=== PATIENT | male | born 1935 | race Hispanic/Latino ===

== ENCOUNTER 2022-06-06 10:37 | Inpatient (IN) ==
[2022-06-06] MEDS ORDERED: IOPAMIDOL 100 ML BOTTLE IV ONE (10:38)
--- NOTE | 2022-06-06 10:42 | Emergency Department Note ---
HPI General Chief complaint: Weakness Stated complaint: weakness, low blood pressure. Time Seen by Provider: 06/06/22 10:41 Mode of arrival: wheelchair History of Present Illness HPI Narrative: Narrative: 86-year-old male with a past medical history of hypertension and as below presents with low blood pressure of 77 systolic as brought by EMT. Patient had diarrhea for 4 days. No headache, dizziness, chest pain, abdominal pain, nausea, no vomiting, fever, chills Related Data Home Medications Medication Instructions Recorded Confirmed aspirin 81 mg chewable tablet 81 mg PO QDAY 03/10/15 05/26/22 multivitamin 1 tab PO QDAY 03/10/15 05/26/22 acetaminophen 500 mg capsule 500 mg PO Q6H PRN 03/23/21 05/26/22 Previous Rx's Medication Instructions Recorded sodium chloride 1 gram tablet 1,000 mg PO QDAY #30 tabs 10/13/20 ferrous sulfate 325 mg (65 mg 325 mg PO BID #90 tabs 12/23/20 iron) tablet,delayed release furosemide 20 mg tablet 20 mg PO QDAY #30 tabs 02/04/21 diaper,brief,adult,disposable #140 ea 03/25/21 apixaban 2.5 mg tablet 2.5 mg PO BID #60 tabs 04/26/21 amlodipine 10 mg tablet 10 mg PO QDAY #90 tabs 09/23/21 tamsulosin 0.4 mg capsule 0.4 mg PO QHS #30 caps 10/20/21 theophylline 400 mg 200 mg PO BID #90 tabs 10/20/21 tablet,extended release 24 hr iron sucrose 200 mg iron/10 mL 200 mg (10 mL) IV QWEEK Failed 11/02/21 intravenous solution (Venofer) oral iron supplements #20 mL montelukast 10 mg tablet 10 mg PO QPM #90 tabs 02/01/22 (Singulair) Roho cushion #1 ea 03/29/22 levothyroxine 125 mcg tablet 125 mcg PO QDAY #90 tabs 04/21/22 Allergies Allergy/AdvReac Type Severity Reaction Status Date / Time peanut Allergy Severe Rash Verified 05/26/22 10:53 yeast Allergy Severe Rash Uncoded 05/26/22 10:53 Review of Systems ROS ROS Narrative: Narrative: Constitutional: Reports as per HPI PFSH Narrative Patient History Narrative: Narrative: Medical/Surgical/Family History All Active Problems (Updated 06/06/22 @ 17:53 by Modesto Paulino MD) Hypotension (Acute) Dehydration (Acute) Cellulitis of both lower extremities (Acute) Colitis (Acute) UTI (urinary tract infection) (Acute) Benign localized prostatic hyperplasia without lower urinary tract symptoms (LUTS) (Acute) Bladder disorder, other (Acute) COPD (chronic obstructive pulmonary disease) (Acute) Developmental delay (Acute) Elevated PSA (Acute) Hematuria (Acute 11/13/14) Horseshoe kidney (Acute) Hydronephrosis (Acute) RAD (reactive airway disease) (Acute) Urine retention (Acute 11/13/14) History of intraocular lens implant (Acute) Status post surgical removal of malignant neoplasm of skin (Acute) History of prostate surgery (Acute 02/24/15) Hyperkalemia (Acute) Metabolic acidosis (Chronic) Hypertensive renal disease (Chronic) Anemia (Chronic) History of colonoscopy (Chronic 06/22/15) Medicare annual wellness visit, subsequent (Acute) Hyponatremia (Chronic) Annual physical exam (Acute) Xerosis cutis (Acute) Dermatitis (Acute) Cervical spine fracture (Acute) Fall (Acute) Sacral ulcer (Acute) Weakness (Acute) Edema of right lower extremity (Acute) Hematuria (Acute) Eczema (Acute) Chronic kidney disease (CKD) stage G3a/A2, moderately decreased glomerular filtration rate (GFR) between 45-59 mL/min/1.73 square meter and albuminuria creatinine ratio between 30-299 mg/g (Chronic) Horseshoe kidney (Chronic) Primary hypertension (Chronic) Anemia due to stage 3a chronic kidney disease (Chronic) Acute urinary retention (Acute) Acute UTI (Acute) Cellulitis of left leg (Acute) Thrombosis of left saphenous vein (Acute) PAD (peripheral artery disease) (Acute) Dermatitis (Acute) Localized edema due to fluid overload (Chronic) Iron deficiency anemia (Acute) Hypothyroidism (Acute) Atypical squamoproliferative skin lesion (Acute) Recurrent urinary tract infection (Acute) Medical History Anemia hB down to upto 11.8 from 11.5-11.0 Tsat is low advised to start OTC ferrous sulphate bid will follow Annual physical exam Atypical squamoproliferative skin lesion Benign localized prostatic hyperplasia without lower urinary tract symptoms (LUTS) Bladder disorder, other Bladder floor mass consistent with neoplasm COPD (chronic obstructive pulmonary disease) Dermatitis Dermatitis Developmental delay Eczema Edema of right lower extremity Elevated PSA Hematuria (11/13/14) Hematuria 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 Would hold off treating this for now. Hydronephrosis He does have bilateral hydronephrosis and this is probably secondary to his retention. We will need to do an ultrasound in the future to see if this has resolved. Hyperkalemia ACEI and CKD are risk factor for hyperkalemia given worsening renal function and hyperkalemia, lisinopril has been discontinued advised to avoid foods with high K content will monitor Hypertensive renal disease Hyponatremia Hypothyroidism Iron deficiency anemia Medicare annual wellness visit, subsequent Metabolic acidosis bicarb at 21, goal is 22 or more will monitor and start sodium bicarb supplement if needed next visit RAD (reactive airway disease) Sacral ulcer Urine retention (11/13/14) Weakness Xerosis cutis Surgical History History of colonoscopy (06/22/15) 03/08/10 Dr. Kahn History of intraocular lens implant Bilateral History of prostate surgery (02/24/15) Vaporization of the prostate Status post surgical removal of malignant neoplasm of skin Basal cell carcinoma Left Groin Family History Mother , at age 72 Alcohol abuse Father , at age 87 Diabetes mellitus Unknown Essential hypertension Malignant neoplasm Social History Smoking Status: Former smoker Alcohol Intake Frequency: does not drink Substance Use: does not use Exam Narrative Narrative: Narrative: General General appearance: Present alert and in no apparent distress Eye Eye: Present normal appearance ENT ENT: Present mucous membranes dry Respiratory Respiratory: Present normal lung sounds bilaterally Cardiovascular Cardiovascular: Present regular rate, normal rhythm and normal heart sounds Adbominal Abdominal: Present soft and normal bowel sounds; Absent tenderness, guarding or organomegaly Extremities Extremities: Present clubbing and other (bilateral LE redness and swelling. ) Neurological Neurological: Present alert and oriented X3 Course Course Course Narrative: CBC, CMP, UA, lactic acid, CRP, C. difficile, blood cultures, troponin, COVID, culture for wound, chest x-ray were ordered. Normal saline 500 mL was given. Patient has anemia of hemoglobin 7.8. 1 unit of blood transfusion was ordered. CT abdomen/pelvis with contrast was ordered. COVID-[address] abdominal pelvis consistent with [facility] NAME: Harsh Zamarripa [address] [place] [address] : 1935 [address] Service Date: 06/06/22 Report # [id number] [place] [address] Miki Ward M.D. MR #: [id number] Cat Scan Report Signed Ordering Physician:Modesto Paulino M.D. Date of Service:06/06/22 Procedure(s):CT abdomen pelvis w con CLINICAL INFORMATION: Weakness, low blood pressure and diarrhea COMPARISON: Abdomen and pelvic CTs 12/16/2020 and 02/19/2021 TECHNIQUE: Following enteric contrast, 80 cc of Isovue-370 were injected intravenously, and 60 seconds later, 0.625 mm helical slices were obtained from the mid heart through the subtrochanteric regions. Following reconstruction, 2.5 mm sagittal, coronal and axial reformatted images were processed and reviewed at bone, lung and soft tissue windows. Five minutes later, 0.625 mm helical slices were obtained from the mid heart through the kidneys and viewed at soft tissue windows.The exam was performed using radiation dose optimization techniques including, but not limited to, automated exposure control, adjustment of the mA and/or kV according to patient size and use of iterative reconstruction technique. FINDINGS: Left pleural effusion as decreased slightly in size now small/moderate size. There is subsegmental atelectasis in the adjacent posterior lower lobe. Scattered fibrosis in the remaining lung bases. The visualized heart is mildly enlarged with scattered calcific plaque. Abdominal images show joint 8 mm cyst in the subdiaphragmatic right hepatic lobe. No significant hepatic abnormality. 12 mm solitary cholesterol stone in the gallbladder neck seen as as before. Gallbladder and bile ducts are, otherwise, normal CBD is 6 mm. The pancreas is normal. There is an 8 mm low-attenuation lesion in the spleen which is stable. A 14 mm benign adenoma left adrenal gland is stable. Right adrenal land is normal. Horseshoe kidney configuration seen as before. There are 3-4 nonobstructing stones in the upper collecting system of the left kidney ranging up to 8 mm in the inferior calyx. No obstructing stone or hydronephrosis. A 5.2 cm simple cyst in the medial left kidney is unchanged. 2.7 cm inhomogeneously enhancing well-circumscribed lesion inferior pole left kidney show slight increase since the earliest CT 1.5 years ago. At that time, it was 2.6 cm. Mildly enlarged lymph nodes in the para-aortic region are almost totally benign reactive lymph nodes. Pelvic images show mild prostate enlargement. Troy catheter is properly positioned urinary bladder. There is marked diffuse urinary bladder wall thickening. Moderate diffuse wall thickening of the distal sigmoid and rectum with inflammation and the perisigmoid and perirectal fat is a new finding suggests proctitis/colitis. The remainder of the large bowel small bowel and stomach are grossly normal. There is a 5.3 cm periumbilical hernia containing only mesenteric fat with moderate edema in the hernia as previously seen. Bone windows show no osseous abnormality. IMPRESSION: 1. Suspect distal sigmoid colitis and proctitis. Consider colonoscopy correlation 2. 6 cm paraumbilical hernia containing only mesenteric fat. Edema in the mesenteric fat. 3. 2.7 cm inhomogeneously enhancing mass inferior pole of the left kidney is slight increase from exam 1.5 years ago it is likely a very slow-growing stage I renal cell carcinoma. No evidence of metastatic disease. 4. 3-4 nonobstructing stones upper collecting system left kidney ranging up to 6 mm. 5. Solitary 12 mm stone in the gallbladder 6. Moderate left pleural effusion slightly decreased. Interpreted and Authenticated by: Miki Ward 06/06/22 [id number] Slotter Operator: Will give Flagyl 500 mg IV. Patient will be referred to urology consult for left kidney mass. Patient also has UTI Patient's will be admitted to Med Surg as discussed with Hospitalist Dr. SANDHU Vital Signs Vital signs: Vital Signs Temperature 98.2 F 06/06/22 10:39 Pulse Rate 77 06/06/22 10:39 Respiratory Rate 20 06/06/22 10:39 Pulse Oximetry (%) 96 06/06/22 10:39 Oxygen Delivery Method 06/06/22 10:39 Temperature 98.2 F 06/06/22 10:39 Pulse Rate 72 06/06/22 17:46 Respiratory Rate 20 06/06/22 10:39 Blood Pressure 123/54 06/06/22 17:46 Pulse Oximetry (%) 98 06/06/22 17:46 Oxygen Delivery Method 06/06/22 10:39 MDM MDM Narrative Medical decision making narrative: Narrative: Lab Data Result diagrams: 06/06/22 11:18 Labs: Lab Results 06/06/22 06/06/22 06/06/22 Range/Units 11:07 11:09 11:18 WBC 5.4 (4.5-11.0) K/mcL RBC 2.62 L (4.63-6.08) M/mcL Hgb 7.8 L (13.7-17.5) g/dL Hct 23.5 L (40.1-51.0) % POC Hct 24.0 L (41-55) MCV 89.7 (80.0-100.0) fL MCH 29.8 (26.0-34.0) pg MCHC 33.2 (31.0-36.0) g/dL RDW 14.7 H (11.5-14.5) % Plt Count 254 (140-440) K/mcL MPV 8.1 L (8.8-12.5) fL Immature Gran % (Auto) 0.4 (0.0-0.5) % Neut % (Auto) 54.8 (38.0-78.0) % Lymph % (Auto) 15.0 L (15.5-49.0) % [place] % (Auto) 8.5 (1.0-12.0) % Eos % (Auto) 20.6 H (0.0-7.0) % Baso % (Auto) 0.7 (0.0-2.0) % Lymph # (Auto) 0.81 L (1.50-4.80) K/mcL [place] # (Auto) 0.46 (0.10-0.90) K/mcL Eos # (Auto) 1.11 H (0.00-0.70) K/mcL Baso # (Auto) 0.04 (0.00-0.30) K/mcL Immature Gran # 0.02 (0.00-0.05) K/mcl Absolute Neutrophils 2.95 (1.80-8.00) K/mcL VBG Lactic Acid (0.5-2.0) mmol/L POC Sodium 131 L (133-145) POC Potassium 3.6 (3.3-5.1) POC Chloride 98 (96-108) POC Total CO2 20.0 L (22-30) POC BUN 24 H (6-20) POC Creatinine 1.4 H (0.6-1.2) POC Glucose 95 (70-105) POC WB Ioniz Calcium 1.21 (1.16-1.32) Total Bilirubin (0.1-1.0) mg/dL Direct Bilirubin (0-0.3) mg/dL AST (<40) U/L ALT (<40) U/L Alkaline Phosphatase (39-117) U/L C-Reactive Protein (0.03-0.80) mg/dL Total Protein (5.9-8.4) gm/dL Albumin (3.2-5.2) gm/dL Globulin (2.2-3.7) gm/dL Amylase (28-100) U/L Urine Color Urine Appearance (Clear) Urine pH (5.0-9.0) Ur Specific [place] (1.000-1.035) Urine Protein (Negative) mg/dL Urine Glucose (UA) (Negative) mg/dL Urine Ketones (Negative) mg/dL Urine Occult Blood (Negative) mg/dL Urine Nitrate (Negative) Urine Bilirubin (Negative) mg/dL Urine Urobilinogen mg/dL Ur Leukocyte Esterase (Negative) /uL Urine RBC (0-1) /hpf Urine WBC (0-4) /hpf Ur Squamous Epith Cells (0-4) /hpf Ur Transition Epith Cell (0-2) /hpf Triple Phos Crystals (None) /hpf Amorphous Crystals (None) /hpf Urine Bacteria (0) /hpf Urine Mucus (None) /hpf Ur Culture Indicated? POC Troponin I 0.01 L (0.02-0.08) 06/06/22 06/06/22 Range/Units 11:18 12:49 WBC (4.5-11.0) K/mcL RBC (4.63-6.08) M/mcL Hgb (13.7-17.5) g/dL Hct (40.1-51.0) % POC Hct (41-55) MCV (80.0-100.0) fL MCH (26.0-34.0) pg MCHC (31.0-36.0) g/dL RDW (11.5-14.5) % Plt Count (140-440) K/mcL MPV (8.8-12.5) fL Immature Gran % (Auto) (0.0-0.5) % Neut % (Auto) (38.0-78.0) % Lymph % (Auto) (15.5-49.0) % [place] % (Auto) (1.0-12.0) % Eos % (Auto) (0.0-7.0) % Baso % (Auto) (0.0-2.0) % Lymph # (Auto) (1.50-4.80) K/mcL [place] # (Auto) (0.10-0.90) K/mcL Eos # (Auto) (0.00-0.70) K/mcL Baso # (Auto) (0.00-0.30) K/mcL Immature Gran # (0.00-0.05) K/mcl Absolute Neutrophils (1.80-8.00) K/mcL VBG Lactic Acid 0.8 (0.5-2.0) mmol/L POC Sodium (133-145) POC Potassium (3.3-5.1) POC Chloride (96-108) POC Total CO2 (22-30) POC BUN (6-20) POC Creatinine (0.6-1.2) POC Glucose (70-105) POC WB Ioniz Calcium (1.16-1.32) Total Bilirubin 0.4 (0.1-1.0) mg/dL Direct Bilirubin < 0.2 (0-0.3) mg/dL AST 62 H (<40) U/L ALT 37 (<40) U/L Alkaline Phosphatase 65 (39-117) U/L C-Reactive Protein 12.90 H (0.03-0.80) mg/dL Total Protein 5.8 L (5.9-8.4) gm/dL Albumin 2.4 L (3.2-5.2) gm/dL Globulin 3.4 (2.2-3.7) gm/dL Amylase 100 (28-100) U/L Urine Color Yellow Urine Appearance Turbid A (Clear) Urine pH 7.0 (5.0-9.0) Ur Specific [place] 1.017 (1.000-1.035) Urine Protein >=500 A (Negative) mg/dL Urine Glucose (UA) Negative (Negative) mg/dL Urine Ketones Negative (Negative) mg/dL Urine Occult Blood Negative (Negative) mg/dL Urine Nitrate Negative (Negative) Urine Bilirubin Negative (Negative) mg/dL Urine Urobilinogen Negative mg/dL Ur Leukocyte Esterase 250 A (Negative) /uL Urine RBC > 182 H (0-1) /hpf Urine WBC > 182 H (0-4) /hpf Ur Squamous Epith Cells 0 (0-4) /hpf Ur Transition Epith Cell 1 (0-2) /hpf Triple Phos Crystals Few A (None) /hpf Amorphous Crystals Few A (None) /hpf Urine Bacteria None (0) /hpf Urine Mucus Many A (None) /hpf Ur Culture Indicated? yes POC Troponin I (0.02-0.08) ED POC Tests ED POC Tests: DEREK - SARS Antigen Negative Discharge Plan Patient/Caregiver Discharge Instructions Pt seen by B[facility]ER/PA only: No Clinical Impression: Hypotension, Dehydration, Cellulitis of both lower extremities, Colitis, UTI (urinary tract infection) Patient Disposition: Xfer Acute [facility] Condition: Fair Follow up with: Solitario Bo MD [Primary Care Provider] - Prescriptions: No Action sodium chloride 1 gram tablet 1,000 mg PO QDAY Qty: 30 1RF ferrous sulfate 325 mg (65 mg iron) tablet,delayed release (DR/EC) 325 mg PO BID Qty: 90 1RF furosemide 20 mg tablet 20 mg PO QDAY Qty: 30 0RF Rx Instructions: Take 1 tablet once a day. (DME) diaper,brief,adult,disposable Misc See Rx Instructions .Route Qty: 140 3RF Rx Instructions: As directed amlodipine 10 mg tablet 10 mg PO QDAY Qty: 90 1RF tamsulosin 0.4 mg capsule 0.4 mg PO QHS Qty: 30 6RF theophylline 400 mg tablet extended release 24 hr 200 mg PO BID Qty: 90 1RF Venofer 200 mg iron/10 mL solution 200 mg IV QWEEK Qty: 20 0RF Rx Instructions: 200 mg Iv infusion x2, 1 week apart, administer over 30 mins montelukast [Singulair] 10 mg tablet 10 mg PO QPM Qty: 90 1RF (DME) Emily brown See Rx Instructions .Route .MEDSUPPLY Qty: 1 0RF Rx Instructions: As directed levothyroxine 125 mcg tablet 125 mcg PO QDAY Qty: 90 1RF multivitamin tablet 1 tab PO QDAY aspirin 81 mg tablet,chewable 81 mg PO QDAY acetaminophen 500 mg capsule 500 mg PO Q6H PRN apixaban 2.5 mg tablet 2.5 mg PO BID Qty: 60 0RF
[2022-06-06] MEDS ORDERED: 0.9 % SODIUM CHLORIDE 500 ML IV ONE ×2 (10:54→13:03)
[2022-06-06 11:23] LABS: POC Calcium, Ionized 1.21 (1.16-1.32); POC Creatinine 1.4 (0.6-1.2); POC Potassium 3.6 (3.3-5.1)
--- NOTE | 2022-06-06 11:33 | XRay Report ---
CLINICAL INFORMATION: Chest, abdomen and pelvic CT 12/16/2020 COMPARISON: None. TECHNIQUE: Portable FINDINGS: Mild cardiomegaly is unchanged. Mediastinum and pulmonary vessels are normal. Small/moderate left pleural effusion with compressive atelectasis in the left lung base noted. IMPRESSION: Small/moderate left pleural effusion with subsegmental atelectasis left base Interpreted and Authenticated by: Miki Ward 06/06/22
[2022-06-06 11:58] LABS: Basophils # (Auto) 0.04 K/mcL (0.00-0.30); Basophils % (Auto) 0.7 % (0.0-2.0); Eosinophils # (Auto) 1.11 K/mcL (0.00-0.70); Eosinophils % (Auto) 20.6 % (0.0-7.0); Hematocrit 23.5 % (40.1-51.0); Hemoglobin 7.8 g/dL (13.7-17.5); Lymphocytes # (Auto) 0.81 K/mcL (1.50-4.80); Mean Cell Volume 89.7 fL (80.0-100.0); Mean Corpuscular HGB Conc 33.2 g/dL (31.0-36.0); Mean Platelet Volume 8.1 fL (8.8-12.5); Monocytes # (Auto) 0.46 K/mcL (0.10-0.90); Monocytes % (Auto) 8.5 % (1.0-12.0); Neutrophils % (Auto) 54.8 % (38.0-78.0); Platelet Count 254 K/mcL (140-440); RBC 2.62 M/mcL (4.63-6.08); Red Cell Distribution Width 14.7 % (11.5-14.5); WBC 5.4 K/mcL (4.5-11.0)
[2022-06-06 12:16] LABS: ALT/SGPT 37 U/L (<40); AST/SGOT 62 U/L (<40); Albumin 2.4 gm/dL (3.2-5.2); Alkaline Phosphatase 65 U/L (39-117); Amylase 100 U/L (28-100); Bilirubin,Direct < 0.2 mg/dL (0-0.3); Bilirubin,Total 0.4 mg/dL (0.1-1.0); Globulin 3.4 gm/dL (2.2-3.7)
[2022-06-06] MEDS ORDERED: cefTRIAXone 1 GM VIAL IV ONE (12:39)
--- NOTE | 2022-06-06 13:20 | General Surgery Consult Note ---
HPI Data of Consult Consult date: 06/06/22 Requesting physician: Modesto Paulino Primary Care Provider: Solitario Bo MD Consult Narrative Patient Information: Note initiated : 06/06/22 at 1:07 pm Service Date, if different from initiated Date: [] Patient: Harsh Zamarripa 86 y/o M admitted on for weakness, low blood pressure.. Chief Complaint: [] Chief complaint: Patient in ER via EMS. Non ambulatory.W/C for Diarrhea, LUI and low BP Reason for consult: Wound care for chronic scales / dermatitis of both legs with bleeding. cc:: CC:Dr. Bo. Consultation was requested by ER Physician to see this patient with chronic wounds and low blood pressure , Sepsis. I saw this patient in T2 along with nursing staff. Patient is verbal and cooperative.NO distress. NSR on monitor. Admits to weakness, diarrhea and chronic leakage from skin wounds of both legs. Has an indwelling Troy catheter with turbid urine. He is malnourished and emaciated. Review of Systems All systems: reviewed and no additional remarkable complaints except as stated (Patient c/o weakness, loose bowel movements. ) Integumentary Integumentary: Present wounds (Long standing exfoliative scales and chroninc Stage 2 skin ulcers of lower 2/3 of both legs. Hemo serous draiange. NO warmth, No trauma, NO purulence and NO crepitus.) Endocrine Endocrine: Present other (Hypothyroidism per ER notes.) PFSH PFSH All Active Problems (Updated 06/06/22 @ 18:48 by Marlo Tee MD) Renal cell carcinoma of left kidney (Acute) Hypotension (Acute) Dehydration (Acute) Cellulitis of both lower extremities (Acute) Colitis (Acute) UTI (urinary tract infection) (Acute) Benign localized prostatic hyperplasia without lower urinary tract symptoms (LUTS) (Acute) Bladder disorder, other (Acute) COPD (chronic obstructive pulmonary disease) (Acute) Developmental delay (Acute) Elevated PSA (Acute) Hematuria (Acute 11/13/14) Horseshoe kidney (Acute) Hydronephrosis (Acute) RAD (reactive airway disease) (Acute) Urine retention (Acute 11/13/14) History of intraocular lens implant (Acute) Status post surgical removal of malignant neoplasm of skin (Acute) History of prostate surgery (Acute 02/24/15) Hyperkalemia (Acute) Metabolic acidosis (Chronic) Hypertensive renal disease (Chronic) Anemia (Chronic) History of colonoscopy (Chronic 06/22/15) Medicare annual wellness visit, subsequent (Acute) Hyponatremia (Chronic) Annual physical exam (Acute) Xerosis cutis (Acute) Dermatitis (Acute) Cervical spine fracture (Acute) Fall (Acute) Sacral ulcer (Acute) Weakness (Acute) Edema of right lower extremity (Acute) Hematuria (Acute) Eczema (Acute) Chronic kidney disease (CKD) stage G3a/A2, moderately decreased glomerular filtration rate (GFR) between 45-59 mL/min/1.73 square meter and albuminuria creatinine ratio between 30-299 mg/g (Chronic) Horseshoe kidney (Chronic) Primary hypertension (Chronic) Anemia due to stage 3a chronic kidney disease (Chronic) Acute urinary retention (Acute) Acute UTI (Acute) Cellulitis of left leg (Acute) Thrombosis of left saphenous vein (Acute) PAD (peripheral artery disease) (Acute) Dermatitis (Acute) Localized edema due to fluid overload (Chronic) Iron deficiency anemia (Acute) Hypothyroidism (Acute) Atypical squamoproliferative skin lesion (Acute) Recurrent urinary tract infection (Acute) Medical History Anemia hB down to upto 11.8 from 11.5-11.0 Tsat is low advised to start OTC ferrous sulphate bid will follow Annual physical exam Atypical squamoproliferative skin lesion Benign localized prostatic hyperplasia without lower urinary tract symptoms (LUTS) Bladder disorder, other Bladder floor mass consistent with neoplasm COPD (chronic obstructive pulmonary disease) Dermatitis Dermatitis Developmental delay Eczema Edema of right lower extremity Elevated PSA Hematuria (11/13/14) Hematuria 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 Would hold off treating this for now. Hydronephrosis He does have bilateral hydronephrosis and this is probably secondary to his retention. We will need to do an ultrasound in the future to see if this has resolved. Hyperkalemia ACEI and CKD are risk factor for hyperkalemia given worsening renal function and hyperkalemia, lisinopril has been discontinued advised to avoid foods with high K content will monitor Hypertensive renal disease Hyponatremia Hypothyroidism Iron deficiency anemia Medicare annual wellness visit, subsequent Metabolic acidosis bicarb at 21, goal is 22 or more will monitor and start sodium bicarb supplement if needed next visit RAD (reactive airway disease) Sacral ulcer Urine retention (11/13/14) Weakness Xerosis cutis Surgical History History of colonoscopy (06/22/15) 03/08/10 Dr. Kahn History of intraocular lens implant Bilateral History of prostate surgery (02/24/15) Vaporization of the prostate Status post surgical removal of malignant neoplasm of skin Basal cell carcinoma Left Groin Family History Mother , at age 72 Alcohol abuse Father , at age 87 Diabetes mellitus Unknown Essential hypertension Malignant neoplasm Social History housing: house marital status: other details: never education level: elementary school occupational status: disabled smoking status: Former smoker alcohol intake frequency: does not drink substance use type: does not use MEDS/ALLERGIES Home Medications and Allergies Home Medications Medication Instructions Recorded Confirmed Type aspirin 81 mg chewable tablet 81 mg PO QDAY 03/10/15 06/06/22 History multivitamin 1 tab PO QDAY 03/10/15 06/06/22 History ferrous sulfate 325 mg (65 mg 325 mg PO BID #90 tabs 12/23/20 06/06/22 Rx iron) tablet,delayed release acetaminophen 500 mg capsule 500 mg PO Q6H PRN Pain, Mild 03/23/21 06/06/22 History diaper,brief,adult,disposable #140 ea 03/25/21 06/06/22 Rx montelukast 10 mg tablet 10 mg PO QPM #90 tabs 02/01/22 06/06/22 Rx (Singulair) Emily cushion #1 ea 03/29/22 06/06/22 Rx levothyroxine 125 mcg tablet 125 mcg PO QDAY #90 tabs 04/21/22 06/06/22 Rx tamsulosin 0.4 mg capsule 1 cap PO HS 06/06/22 06/06/22 History theophylline 400 mg 400 mg PO DAILY 06/06/22 06/06/22 History tablet,extended release 24 hr Allergies Allergy/AdvReac Type Severity Reaction Status Date / Time peanut Allergy Severe Rash Verified 05/26/22 10:53 yeast Allergy Severe Rash Uncoded 05/26/22 10:53 Physical Examination Vital Signs Vital signs: Temp Pulse Resp BP Pulse Ox O2 Del Method 98.2 F 73 20 126/71 98 06/06/22 10:39 06/06/22 12:46 06/06/22 10:39 06/06/22 12:46 06/06/22 12:46 06/06/22 10:39 General physical appearance General physical exam: no distress, cachectic and chronically ill Eyes Eye exam: PERRL ENT ENT exam: normal pinna, normal nares and no congestion Head Head exam IM: Present atraumatic and normal inspection Neck Neck exam: no masses, no venous distension and limited ROM Cardiovascular Cardiovascular exam IM: Present normal rate and rhythm Peripheral pulses: 2+: posterior tibialis (L) and posterior tibialis (R) and 3+/4+: dorsalis pedis (L) and dorsalis pedis (R) Respiratory Respiratory exam: normal expansion, normal respiratory effort and other Respiratory exam: dullness: bilateral Abdomen Abdomen: Present soft, non tender and bowel sounds Genitourinary Genitourinary (Male): Present normal penis with no external lesions and other ( Troy catheter. turbid urine. H/O Elevated PSA. Rectal examination NOT done.) Integumentary Integumentary: Present other (Multiple symmetric exfoliaton of skin of both legs with Stage 1-2 skin lesions and bright red capillary oozing. Edema of ankles both feet. ) Neurologic Neurologic: Present other (Moves all 4 limbs purpoefully. ) Musculoskeletal Musculoskeletal: Present other (Non ambulatory. Moves all extremties and hands / feet. ) Additional Findings Additional exam: Anemic Hct23, Dry and hemoconcentrated BUN/Cr 24/1.4 CRP above 12. Troponin is Normal Results Labs Result diagrams: 06/06/22 11:18 06/07/22 05:28 Labs: Abnormal lab results 06/06/22 06/06/22 06/06/22 Range/Units 11:07 11:09 11:18 RBC 2.62 L (4.63-6.08) M/mcL Hgb 7.8 L (13.7-17.5) g/dL Hct 23.5 L (40.1-51.0) % POC Hct 24.0 L (41-55) RDW 14.7 H (11.5-14.5) % MPV 8.1 L (8.8-12.5) fL Lymph % (Auto) 15.0 L (15.5-49.0) % Eos % (Auto) 20.6 H (0.0-7.0) % Lymph # (Auto) 0.81 L (1.50-4.80) K/mcL Eos # (Auto) 1.11 H (0.00-0.70) K/mcL POC Sodium 131 L (133-145) POC Total CO2 20.0 L (22-30) POC BUN 24 H (6-20) POC Creatinine 1.4 H (0.6-1.2) AST (<40) U/L C-Reactive Protein (0.03-0.80) mg/dL Total Protein (5.9-8.4) gm/dL Albumin (3.2-5.2) gm/dL POC Troponin I 0.01 L (0.02-0.08) 06/06/22 Range/Units 11:18 RBC (4.63-6.08) M/mcL Hgb (13.7-17.5) g/dL Hct (40.1-51.0) % POC Hct (41-55) RDW (11.5-14.5) % MPV (8.8-12.5) fL Lymph % (Auto) (15.5-49.0) % Eos % (Auto) (0.0-7.0) % Lymph # (Auto) (1.50-4.80) K/mcL Eos # (Auto) (0.00-0.70) K/mcL POC Sodium (133-145) POC Total CO2 (22-30) POC BUN (6-20) POC Creatinine (0.6-1.2) AST 62 H (<40) U/L C-Reactive Protein 12.90 H (0.03-0.80) mg/dL Total Protein 5.8 L (5.9-8.4) gm/dL Albumin 2.4 L (3.2-5.2) gm/dL POC Troponin I (0.02-0.08) Diabetes panel 06/06/22 Range/Units 11:18 AST 62 H (<40) U/L ALT 37 (<40) U/L Alkaline Phosphatase 65 (39-117) U/L Total Protein 5.8 L (5.9-8.4) gm/dL Albumin 2.4 L (3.2-5.2) gm/dL Calcium panel 06/06/22 Range/Units 11:18 Albumin 2.4 L (3.2-5.2) gm/dL Adrenal panel 06/06/22 Range/Units 11:18 Total Bilirubin 0.4 (0.1-1.0) mg/dL AST 62 H (<40) U/L ALT 37 (<40) U/L Alkaline Phosphatase 65 (39-117) U/L Total Protein 5.8 L (5.9-8.4) gm/dL Albumin 2.4 L (3.2-5.2) gm/dL All other labs normal. Imaging Chest x-ray: other (Small pleural effusion) A/P Sepsis Sepsis Identified: Yes Time Zero: 08:00 Hrs.Note completed on 06/07/2022. Patient seen in ER on 06/06/22 Narrative A/P Narrative: Assessment: Sepsis ?? UTI Dehydration Deconditioning Chronic exfoliative dermatitis Both legs. Vasculitis versus post phlebitis both legs. Plan: Treatment for UTI / Dehydration per ER MD Skin care: Clean with VASHE. Dwell time on skin 5 minutes Later Apply BACTROBAN to skin lesions, Adaptic Gauze and Kerlix from toes to lower calves. Cover with ALAN Daily. If admitted to hospital, consult wound care nurse Will follow patient in hospital Further recommendations as condition evolves. Time Spent With Patient Time: Total time spent is greater than 50% in coordination of care (as documented) at patient's floor/unit and/or counseling patient: Total time spent with greater than 50% in coordination of care (as documented) at patient's floor/unit and/or counseling patient:: 25 - 35 minutes
[2022-06-06 13:30] LABS: Appearance,Urine TURBID (Clear); Bilirubin,Urine Negative (Negative); Color,Urine YELLOW; Culture Indicated,Urine yes; Glucose,Urine (UA) Negative (Negative); Ketones,Urine Negative (Negative); Leukocyte Esterase,Urine 250 /uL (Negative); Mucus,Urine MANY /hpf; Nitrate,Urine Negative (Negative); Protein,Urine >=500 mg/dL (Negative); Specific Gravity,Urine 1.017 (1.000-1.035); Triple Phosphate Crystal,Urine FEW /hpf; Urine Amorphous Crystals FEW /hpf; Urine Blood Negative (Negative); Urine RBC > 182 /hpf (0-1); Urine Squamous Epithelial Cell 0 /hpf (0-4); Urine Transitional Epi Cells 1 /hpf (0-2); Urine WBC > 182 /hpf (0-4); Urobilinogen,Urine Negative
[2022-06-06] MEDS ORDERED: 0.9 % SODIUM CHLORIDE 250 ML IV SCH (15:45)
--- NOTE | 2022-06-06 16:58 | Cat Scan Report ---
CLINICAL INFORMATION: Weakness, low blood pressure and diarrhea COMPARISON: Abdomen and pelvic CTs 12/16/2020 and 02/19/2021 TECHNIQUE: Following enteric contrast, 80 cc of Isovue-370 were injected intravenously, and 60 seconds later, 0.625 mm helical slices were obtained from the mid heart through the subtrochanteric regions. Following reconstruction, 2.5 mm sagittal, coronal and axial reformatted images were processed and reviewed at bone, lung and soft tissue windows. Five minutes later, 0.625 mm helical slices were obtained from the mid heart through the kidneys and viewed at soft tissue windows.The exam was performed using radiation dose optimization techniques including, but not limited to, automated exposure control, adjustment of the mA and/or kV according to patient size and use of iterative reconstruction technique. FINDINGS: Left pleural effusion as decreased slightly in size now small/moderate size. There is subsegmental atelectasis in the adjacent posterior lower lobe. Scattered fibrosis in the remaining lung bases. The visualized heart is mildly enlarged with scattered calcific plaque. Abdominal images show joint 8 mm cyst in the subdiaphragmatic right hepatic lobe. No significant hepatic abnormality. 12 mm solitary cholesterol stone in the gallbladder neck seen as as before. Gallbladder and bile ducts are, otherwise, normal CBD is 6 mm. The pancreas is normal. There is an 8 mm low-attenuation lesion in the spleen which is stable. A 14 mm benign adenoma left adrenal gland is stable. Right adrenal land is normal. Horseshoe kidney configuration seen as before. There are 3-4 nonobstructing stones in the upper collecting system of the left kidney ranging up to 8 mm in the inferior calyx. No obstructing stone or hydronephrosis. A 5.2 cm simple cyst in the medial left kidney is unchanged. 2.7 cm inhomogeneously enhancing well-circumscribed lesion inferior pole left kidney show slight increase since the earliest CT 1.5 years ago. At that time, it was 2.6 cm. Mildly enlarged lymph nodes in the para-aortic region are almost totally benign reactive lymph nodes. Pelvic images show mild prostate enlargement. Troy catheter is properly positioned urinary bladder. There is marked diffuse urinary bladder wall thickening. Moderate diffuse wall thickening of the distal sigmoid and rectum with inflammation and the perisigmoid and perirectal fat is a new finding suggests proctitis/colitis. The remainder of the large bowel small bowel and stomach are grossly normal. There is a 5.3 cm periumbilical hernia containing only mesenteric fat with moderate edema in the hernia as previously seen. Bone windows show no osseous abnormality. IMPRESSION: 1. Suspect distal sigmoid colitis and proctitis. Consider colonoscopy correlation 2. 6 cm paraumbilical hernia containing only mesenteric fat. Edema in the mesenteric fat. 3. 2.7 cm inhomogeneously enhancing mass inferior pole of the left kidney is slight increase from exam 1.5 years ago it is likely a very slow-growing stage I renal cell carcinoma. No evidence of metastatic disease. 4. 3-4 nonobstructing stones upper collecting system left kidney ranging up to 6 mm. 5. Solitary 12 mm stone in the gallbladder 6. Moderate left pleural effusion slightly decreased. Interpreted and Authenticated by: Miki Ward 06/06/22
[2022-06-06] MEDS ORDERED: metroNIDAZOLE 500 MG/100 ML BAG IV ONE (17:35)
--- NOTE | 2022-06-06 18:43 | Internal Med History&Physical ---
HPI History of Present Illness Patient information: Note initiated : 06/06/22 at 6:37 pm Service Date, if different from initiated Date: [] Patient: Harsh Zamarripa a 86 y/o M admitted on for weakness, low blood pressure.. Chief Complaint: [weakness, diarrhea] Chief complaint: weakness, diarrhea History of present illness: Mr. 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 The following history is limited by the patient's history of developmental delay and is status get her by his brother present at the bedside. It was reported that the patient has at least 4 days of diarrhea and progressive worsening general weakness with falls at home. His brother decided to send the patient to our ER for further evaluations because he cannot take care of the patient at home anymore. No reported fever chills or diaphoresis. Patient denies any nausea or vomiting. Denies any abdominal pain. Patient denies any weight number symptoms. Patient has indwelling urinary catheter placed and being exchanged monthly last exchanged in May 26, 2022. His brother also reported worsening bilateral lower legs wounds. Vital signs significant for initial hypotension with reported systolic blood pressure in the 70s but after fluid boluses given, now the blood pressures normalized to 136/56 mmHg. Rest of the vital signs are within normal limits and there is no fever noted. Labs significant for WBC of 5.4, H&H 7.8 and 23.5, respectively. Lactic acid 0.8. UA suggesting the presence of urinary tract infections. Chest x-ray unremarkable. CT of the abdomen and pelvis showing distal sigmoid colitis and proctitis. It also shows a 2.7 cm in homogeneously enhancing mass inferior pole of the left kidney increased in size relative to previous study 1.5 years ago consistent with slow-growing stage I renal cell carcinoma. No evidence of metastatic disease. Constitutional Constitutional: Present weakness; Absent chills, excessive sweating, fatigue or fever(s) EENT Eyes: Absent blurry vision, change in vision, loss of vision or other visual disturbances Ears: Absent decreased hearing or tinnitus Nose, mouth and throat: Absent abnormal hearing, dry mouth, headache(s), nasal congestion or sore throat Cardiovascular Cardiovascular: Absent chest pain, chest pain at rest, edema, irregular heart rhythm or palpatations Respiratory Respiratory: Absent cough, dyspnea or wheezing Gastrointestinal Gastrointestinal: Present diarrhea; Absent abdominal pain, constipation, nausea or vomiting Musculoskeletal Musculoskeletal: Absent back pain, deformity, limited range of motion, muscle cramps, muscle weakness or numbness Integumentary Integumentary: Present wounds; Absent lesions or rash Neurological Neurological: Absent focal weakness, headache(s) or numbness Psychiatric Psychiatric: Absent anxiety, depression or hallucinations PFSH PFSH All Active Problems (Updated 06/06/22 @ 18:48 by Marlo Tee MD) Renal cell carcinoma of left kidney (Acute) Hypotension (Acute) Dehydration (Acute) Cellulitis of both lower extremities (Acute) Colitis (Acute) UTI (urinary tract infection) (Acute) Benign localized prostatic hyperplasia without lower urinary tract symptoms (LUTS) (Acute) Bladder disorder, other (Acute) COPD (chronic obstructive pulmonary disease) (Acute) Developmental delay (Acute) Elevated PSA (Acute) Hematuria (Acute 11/13/14) Horseshoe kidney (Acute) Hydronephrosis (Acute) RAD (reactive airway disease) (Acute) Urine retention (Acute 11/13/14) History of intraocular lens implant (Acute) Status post surgical removal of malignant neoplasm of skin (Acute) History of prostate surgery (Acute 02/24/15) Hyperkalemia (Acute) Metabolic acidosis (Chronic) Hypertensive renal disease (Chronic) Anemia (Chronic) History of colonoscopy (Chronic 06/22/15) Medicare annual wellness visit, subsequent (Acute) Hyponatremia (Chronic) Annual physical exam (Acute) Xerosis cutis (Acute) Dermatitis (Acute) Cervical spine fracture (Acute) Fall (Acute) Sacral ulcer (Acute) Weakness (Acute) Edema of right lower extremity (Acute) Hematuria (Acute) Eczema (Acute) Chronic kidney disease (CKD) stage G3a/A2, moderately decreased glomerular filtration rate (GFR) between 45-59 mL/min/1.73 square meter and albuminuria creatinine ratio between 30-299 mg/g (Chronic) Horseshoe kidney (Chronic) Primary hypertension (Chronic) Anemia due to stage 3a chronic kidney disease (Chronic) Acute urinary retention (Acute) Acute UTI (Acute) Cellulitis of left leg (Acute) Thrombosis of left saphenous vein (Acute) PAD (peripheral artery disease) (Acute) Dermatitis (Acute) Localized edema due to fluid overload (Chronic) Iron deficiency anemia (Acute) Hypothyroidism (Acute) Atypical squamoproliferative skin lesion (Acute) Recurrent urinary tract infection (Acute) Medical History Anemia hB down to upto 11.8 from 11.5-11.0 Tsat is low advised to start OTC ferrous sulphate bid will follow Annual physical exam Atypical squamoproliferative skin lesion Benign localized prostatic hyperplasia without lower urinary tract symptoms (LUTS) Bladder disorder, other Bladder floor mass consistent with neoplasm COPD (chronic obstructive pulmonary disease) Dermatitis Dermatitis Developmental delay Eczema Edema of right lower extremity Elevated PSA Hematuria (11/13/14) Hematuria 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 Would hold off treating this for now. Hydronephrosis He does have bilateral hydronephrosis and this is probably secondary to his retention. We will need to do an ultrasound in the future to see if this has resolved. Hyperkalemia ACEI and CKD are risk factor for hyperkalemia given worsening renal function and hyperkalemia, lisinopril has been discontinued advised to avoid foods with high K content will monitor Hypertensive renal disease Hyponatremia Hypothyroidism Iron deficiency anemia Medicare annual wellness visit, subsequent Metabolic acidosis bicarb at 21, goal is 22 or more will monitor and start sodium bicarb supplement if needed next visit RAD (reactive airway disease) Sacral ulcer Urine retention (11/13/14) Weakness Xerosis cutis Surgical History History of colonoscopy (06/22/15) 03/08/10 Dr. Kahn History of intraocular lens implant Bilateral History of prostate surgery (02/24/15) Vaporization of the prostate Status post surgical removal of malignant neoplasm of skin Basal cell carcinoma Left Groin Family History Mother , at age 72 Alcohol abuse Father , at age 87 Diabetes mellitus Unknown Essential hypertension Malignant neoplasm Social History housing: house marital status: other details: never education level: elementary school occupational status: disabled smoking status: Former smoker alcohol intake frequency: does not drink substance use type: does not use MEDS/ALLERGIES Home Medications and Allergies Home Medications Medication Instructions Recorded Confirmed Type aspirin 81 mg chewable tablet 81 mg PO QDAY 03/10/15 05/26/22 History multivitamin 1 tab PO QDAY 03/10/15 05/26/22 History sodium chloride 1 gram tablet 1,000 mg PO QDAY #30 tabs 10/13/20 05/26/22 Rx ferrous sulfate 325 mg (65 mg 325 mg PO BID #90 tabs 12/23/20 05/26/22 Rx iron) tablet,delayed release furosemide 20 mg tablet 20 mg PO QDAY #30 tabs 02/04/21 05/26/22 Rx acetaminophen 500 mg capsule 500 mg PO Q6H PRN Pain, Mild 03/23/21 06/06/22 History diaper,brief,adult,disposable #140 ea 03/25/21 05/26/22 Rx apixaban 2.5 mg tablet 2.5 mg PO BID #60 tabs 04/26/21 05/26/22 Rx theophylline 400 mg 200 mg PO BID #90 tabs 10/20/21 05/26/22 Rx tablet,extended release 24 hr iron sucrose 200 mg iron/10 mL 200 mg (10 mL) IV QWEEK Failed 11/02/21 05/26/22 Rx intravenous solution (Venofer) oral iron supplements #20 mL montelukast 10 mg tablet 10 mg PO QPM #90 tabs 02/01/22 05/26/22 Rx (Singulair) Emily barriosion #1 ea 03/29/22 05/26/22 Rx levothyroxine 125 mcg tablet 125 mcg PO QDAY #90 tabs 04/21/22 06/06/22 Rx tamsulosin 0.4 mg capsule 1 cap PO HS 06/06/22 06/06/22 History theophylline 400 mg 400 mg PO DAILY 06/06/22 06/06/22 History tablet,extended release 24 hr Allergies Allergy/AdvReac Type Severity Reaction Status Date / Time peanut Allergy Severe Rash Verified 05/26/22 10:53 yeast Allergy Severe Rash Uncoded 05/26/22 10:53 EXAM Constitutional Vitals: Temp Pulse Resp BP Pulse Ox O2 Del Method 36.8 C 67 20 126/56 97 06/06/22 10:39 06/06/22 18:31 06/06/22 10:39 06/06/22 18:31 06/06/22 18:31 06/06/22 10:39 General appearance: cooperative and no acute distress Head Head exam: Present atraumatic and normocephalic Eye Eye exam: Present EOMI and PERRL ENT ENT exam: Present mucous membranes moist, normal exam and normal external ear exam Neck Neck exam: Present normal inspection; Absent lymphadenopathy, tenderness or thyromegaly Respiratory Respiratory exam: Absent accessory muscle use, respiratory distress or wheezes Cardiovascular Cardiovascular exam: Present normal rate and rhythm; Absent JVD GI/Abdominal GI/Abdominal exam: Present normal bowel sounds and soft; Absent organomegaly or tenderness Rectal Rectal exam: Present deferred Additional comments: Troy catheter in place Extremities Exam Extremities exam: Present full ROM, normal capillary refill and normal inspection; Absent tenderness Neurological Exam Neurological exam: Present alert, CN II-XII intact and oriented X3; Absent motor sensory deficit Psychiatric Psychiatric exam: Present normal affect and normal mood; Absent anxious or depressed Skin Skin exam: Present dry, erythema, rash and warm; Absent intact Additional comments: Erythematic rash bilateral lower extremities with warmth and tenderness to touch DATA Data Completed and Pending Labs: Labs from last 24 hours 06/06/22 06/06/22 06/06/22 12:49 11:18 11:18 WBC 5.4 RBC 2.62 L Hgb 7.8 L Hct 23.5 L POC Hct MCV 89.7 MCH 29.8 MCHC 33.2 RDW 14.7 H Plt Count 254 MPV 8.1 L Immature Gran % (Auto) 0.4 Neut % (Auto) 54.8 Lymph % (Auto) 15.0 L Candler % (Auto) 8.5 Eos % (Auto) 20.6 H Baso % (Auto) 0.7 Lymph # (Auto) 0.81 L Candler # (Auto) 0.46 Eos # (Auto) 1.11 H Baso # (Auto) 0.04 Immature Gran # 0.02 Absolute Neutrophils 2.95 VBG Lactic Acid 0.8 POC Sodium POC Potassium POC Chloride POC Total CO2 POC BUN POC Creatinine POC Glucose POC WB Ioniz Calcium Total Bilirubin 0.4 Direct Bilirubin < 0.2 AST 62 H ALT 37 Alkaline Phosphatase 65 C-Reactive Protein 12.90 H Total Protein 5.8 L Albumin 2.4 L Globulin 3.4 Amylase 100 Urine Color Yellow Urine Appearance Turbid A Urine pH 7.0 Ur Specific Cotter 1.017 Urine Protein >=500 A Urine Glucose (UA) Negative Urine Ketones Negative Urine Occult Blood Negative Urine Nitrate Negative Urine Bilirubin Negative Urine Urobilinogen Negative Ur Leukocyte Esterase 250 A Urine RBC > 182 H Urine WBC > 182 H Ur Squamous Epith Cells 0 Ur Transition Epith Cell 1 Triple Phos Crystals Few A Amorphous Crystals Few A Urine Bacteria None Urine Mucus Many A Ur Culture Indicated? yes POC Troponin I 06/06/22 06/06/22 11:09 11:07 WBC RBC Hgb Hct POC Hct 24.0 L MCV MCH MCHC RDW Plt Count MPV Immature Gran % (Auto) Neut % (Auto) Lymph % (Auto) Candler % (Auto) Eos % (Auto) Baso % (Auto) Lymph # (Auto) Candler # (Auto) Eos # (Auto) Baso # (Auto) Immature Gran # Absolute Neutrophils VBG Lactic Acid POC Sodium 131 L POC Potassium 3.6 POC Chloride 98 POC Total CO2 20.0 L POC BUN 24 H POC Creatinine 1.4 H POC Glucose 95 POC WB Ioniz Calcium 1.21 Total Bilirubin Direct Bilirubin AST ALT Alkaline Phosphatase C-Reactive Protein Total Protein Albumin Globulin Amylase Urine Color Urine Appearance Urine pH Ur Specific Cotter Urine Protein Urine Glucose (UA) Urine Ketones Urine Occult Blood Urine Nitrate Urine Bilirubin Urine Urobilinogen Ur Leukocyte Esterase Urine RBC Urine WBC Ur Squamous Epith Cells Ur Transition Epith Cell Triple Phos Crystals Amorphous Crystals Urine Bacteria Urine Mucus Ur Culture Indicated? POC Troponin I 0.01 L A/P Assessment and plan (1) Cellulitis of both lower extremities: Status: Acute (2) Colitis: Status: Acute (3) UTI (urinary tract infection): Status: Acute (4) Developmental delay: Status: Acute (5) Anemia due to stage 3a chronic kidney disease: Status: Chronic (6) Chronic kidney disease (CKD) stage G3a/A2, moderately decreased glomerular filtration rate (GFR) between 45-59 mL/min/1.73 square meter and albuminuria creatinine ratio between 30-299 mg/g: Status: Chronic (7) Xerosis cutis: Status: Acute (8) Renal cell carcinoma of left kidney: Status: Acute (9) Thrombosis of left saphenous vein: Status: Acute Sepsis Sepsis Identified: No Narrative A/P Narrative: Assessment and Plans: 1. Bilateral lower extremities cellulitis, history of xerosis cutis: Inpatient med surg Serial lactic acid Procalcitonin level Wound culture Blood culture cbc w/ auto diff in the morning to trend WBC MRSA screening Vancomycin Zosyn Wound care consult Physical therapy 2. UTI: Serial lactic acid Procalcitonin level Urine culture Blood culture cbc w/ auto diff in the morning to trend WBC Exchange Troy catheter Vancomycin Zosyn 3. Sigmoid colitis: Serial lactic acid Procalcitonin level Blood culture cbc w/ auto diff in the morning to trend WBC Vancomycin Zosyn 4. Slow growing left renal cell carcinoma: Continue outpatient monitoring with serial CT imaging 5. h/o left saphenous vein: Holding Eliquis due to worsening anemia 6. Chronic kidney disease stage III with associated anemia: Avoid nephrotoxic agents NS@75cc/hr CMP in the morning to trend kidney functions cbc w/ auto diff in the morning to trend H/H Ferrous sulfate 7. h/o developmental delay: Physical therapy GI ppx: not currently indicated DVT ppx: Holding Eliquis due to worsening anemia Code status: Full Prognosis: guarded Disposition: inpatient med surg; PT Time Spent With Patient Time: Total time spent is greater than 50% in coordination of care (as documented) at patient's floor/unit and/or counseling patient: Total time spent with greater than 50% in coordination of care (as documented) at patient's floor/unit and/or counseling patient:: 50 - 70 minutes
[2022-06-06] MEDS ORDERED: ACETAMINOPHEN 500 MG TABLET PO PRN (19:25)
[2022-06-06] MEDS ORDERED: ACETAMINOPHEN 325 MG TABLET PO PRN (19:37)
[2022-06-06] MEDS ORDERED: ONDANSETRON 4 MG/2 ML VIAL IV PRN (19:37)
[2022-06-06] MEDS ORDERED: VANCOMYCIN PER PHARMACY IV SCH (19:37)
[2022-06-06] MEDS ORDERED: traZODone HCL 50 MG TABLET PO PRN (19:37)
[2022-06-06] MEDS ORDERED: IPRATROPIUM/ALBUTEROL 3 ML AMPUL.NEB NEB PRN (19:37)
[2022-06-06] MEDS ORDERED: PIPERACILLIN SODIUM/TAZOBACTAM 3.375 GM in DEXTROSE 5% IN WATER 50 ML IV SCH (19:37)
[2022-06-06] MEDS ORDERED: morphine 4 MG/ML VIAL IV PRN (19:37)
[2022-06-06] MEDS ORDERED: VANCOMYCIN 1,000 MG in 0.9 % SODIUM CHLORIDE 250 ML IV ONE (21:00)
[2022-06-06] MEDS: MONTELUKAST 10 MG TABLET PO SCH (21:16)
[2022-06-06] MEDS: TAMSULOSIN 0.4 MG CAPSULE PO SCH (21:16)
[2022-06-06] MEDS: 0.9 % SODIUM CHLORIDE 1,000 ML IV SCH (21:18)
[2022-06-06] MEDS: PIPERACILLIN SODIUM/TAZOBACTAM 2.25 GM in DEXTROSE 5% IN WATER 50 ML IV SCH (23:16)
[2022-06-06] MEDS: 0.9 % SODIUM CHLORIDE 10 ML SYRINGE IV SCH (23:17)
[2022-06-07] MEDS: 0.9 % SODIUM CHLORIDE 10 ML SYRINGE IV SCH ×3 (06:07→20:58)
[2022-06-07] MEDS: PIPERACILLIN SODIUM/TAZOBACTAM 2.25 GM in DEXTROSE 5% IN WATER 50 ML IV SCH ×4 (07:04→23:33)
[2022-06-07] MEDS: LEVOTHYROXINE 125 MCG TABLET PO SCH (07:06)
[2022-06-07 08:16] LABS: ALT/SGPT 29 U/L (<40); AST/SGOT 42 U/L (<40); Albumin 1.8 gm/dL (3.2-5.2); Albumin/Globulin Ratio 0.5 (1.0-2.3); Alkaline Phosphatase 58 U/L (39-117); Bilirubin,Total 0.3 mg/dL (0.1-1.0); Blood Urea Nitrogen 18 mg/dL (8-23); Calcium 8.2 mg/dL (8.6-10.4); Carbon Dioxide 20 mmol/L (22-30); Chloride 103 mmol/L (96-108); Globulin 3.4 gm/dL (2.2-3.7); Glomerular Filtration Rate 76; Glucose 63 mg/dL (70-105); Phosphorous 3.2 mg/dL (2.5-4.5)
[2022-06-07 08:35] LABS: Basophils # (Auto) 0.03 K/mcL (0.00-0.30); Basophils % (Auto) 0.6 % (0.0-2.0); Eosinophils # (Auto) 1.73 K/mcL (0.00-0.70); Eosinophils % (Auto) 35.7 % (0.0-7.0); Hematocrit 22.6 % (40.1-51.0); Hemoglobin 7.3 g/dL (13.7-17.5); Lymphocytes # (Auto) 0.48 K/mcL (1.50-4.80); Lymphocytes % (Auto) 9.9 % (15.5-49.0); Mean Cell Volume 94.2 fL (80.0-100.0); Mean Corpuscular HGB Conc 32.3 g/dL (31.0-36.0); Mean Platelet Volume 8.2 fL (8.8-12.5); Monocytes % (Auto) 6.2 % (1.0-12.0); Neutrophils % (Auto) 47.4 % (38.0-78.0); Platelet Count 253 K/mcL (140-440); Red Cell Distribution Width 14.9 % (11.5-14.5); WBC 4.8 K/mcL (4.5-11.0)
[2022-06-07] MEDS: VANCOMYCIN 1,000 MG in 0.9 % SODIUM CHLORIDE 250 ML IV SCH (09:09)
[2022-06-07] MEDS: ASPIRIN 81 MG TAB.CHEW PO SCH (09:10)
[2022-06-07] MEDS: MULTIVIT,THER IRON,CA,FA & MIN 1 TABLET PO SCH (09:10)
[2022-06-07] MEDS: SODIUM CHLORIDE 1 GM TABLET PO SCH (09:10)
[2022-06-07] MEDS: THEOPHYLLINE ANHYDROUS 400 MG TAB.XL.24H PO SCH (09:35)
[2022-06-07] MEDS: oxyCODONE HCL 5 MG TABLET PO PRN (11:13)
[2022-06-07] MEDS: FERROUS SULFATE 325 MG TABLET PO SCH ×2 (11:25→17:10)
--- NOTE | 2022-06-07 11:51 | Internal Med Progress Note ---
SUBJECTIVE Subjective Patient information: Note initiated : 06/07/22 at 11:47 am Service Date, if different from initiated Date: [] Patient: Harsh Zamarripa 86 y/o M admitted on 06/06/22 for weakness, low blood pressure.. Chief Complaint: [] Interval history: Mr. 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 The following history is limited by the patient's history of developmental delay and is status get her by his brother present at the bedside. It was reported that the patient has at least 4 days of diarrhea and progressive worsening general weakness with falls at home. His brother decided to send the patient to our ER for further evaluations because he cannot take care of the patient at home anymore. No reported fever chills or diaphoresis. Patient denies any nausea or vomiting. Denies any abdominal pain. Patient denies any weight number symptoms. Patient has indwelling urinary catheter placed and being exchanged monthly last exchanged in May 26, 2022. His brother also reported worsening bilateral lower legs wounds. Vital signs significant for initial hypotension with reported systolic blood pressure in the 70s but after fluid boluses given, now the blood pressures normalized to 136/56 mmHg. Rest of the vital signs are within normal limits and there is no fever noted. Labs significant for WBC of 5.4, H&H 7.8 and 23.5, respectively. Lactic acid 0.8. UA suggesting the presence of urinary tract infections. Chest x-ray unremarkable. CT of the abdomen and pelvis showing distal sigmoid colitis and proctitis. It also shows a 2.7 cm in homogeneously enhancing mass inferior pole of the left kidney increased in size relative to previous study 1.5 years ago consistent with slow-growing stage I renal cell carcinoma. No evidence of metastatic disease. 06/07: Patient has been afebrile overnight. Patient is on room air. WBC 4.8. Blood culture, urine culture, wound culture no growth to date. C. difficile negative. MRSA screening positive. Patient is currently comfortable denies any pain or discomfort. Denies any subjective fever or chills or diaphoresis. Continue vancomycin and Zosyn while waiting for culture results. Wound care folder bilateral legs cellulitis as per Dr. Lyon. Physical therapy evaluation and treatment for placement planning. Constitutional Vitals: Vital Signs Temp Pulse Resp BP Pulse Ox O2 Del Method 36.1 C 85 17 112/58 95 06/07/22 07:39 06/07/22 07:39 06/07/22 07:39 06/07/22 07:39 06/07/22 07:39 06/07/22 04:03 Period Temp Pulse Resp BP Sys/Bernal Pulse Ox O2 Del Method O2 Flow Rate Last 24 Hr 36.1 C-36.5 C 65-85 16-20 105-136/53-71 95-100 Room Air-Room Air Intake and Output 06/06/22 06/07/22 06/07/22 21:59 05:59 13:59 Intake Total 600 250 984 Output Total 400 175 Balance 200 75 984 Weight 57.924 kg Intake & Output: Intake & Output 06/06/22 06/07/22 06/07/22 21:59 05:59 13:59 Intake Total 600 250 984 Output Total 400 175 Balance 200 75 984 Weight 57.924 kg Intake: Nourishment/Supplement quantity 237 (ml) IV 600 250 350 Sodium Chloride 0.9% 500 ml @ 500 Wide Open IV [facility] Rx#: [id number] Zosyn 2.25 gm In Dextrose 5% in 100 Water 50 ml @ 100 mls/hr IV Q6H [facility] Rx#:[id number] Vancomycin 1,000 mg In Sodium 250 250 Chloride 0.9% 250 ml @ 250 mls/ hr IV Q24H [facility] Rx#:[id number] Oral 397 Output: Urine Catheter Amount 400 175 Other: Meal Breakfast Percent of Meal Consumed 100% Feeding Ability Independent Nourishment/Supplement name Ensure Urine Appearance Cloudy Cloudy Sediment Mucous Threads Mucous Threads Uretheral ([place]) Cloudy Sediment Urine Color Light Zayra Dark Yellow Uretheral ([place]) Dark Yellow Stool Size Small Small Stool Color Brown Brown Green Stool Consistency Liquid Soft Loose # Bowel Movements 1 Head Head exam: Present atraumatic and normal inspection Eye Eye exam: Present normal appearance ENT ENT exam: Present mucous membranes moist, normal exam and normal external ear exam Neck Neck exam: Present normal inspection Respiratory Respiratory exam: Present normal respiratory exam Cardiovascular Cardiovascular exam: Present normal rate and rhythm GI/Abdominal GI/Abdominal exam: Present normal bowel sounds Additional comments: Troy catheter in place Back Exam Back exam: Present normal inspection Neurological Exam Neurological exam: Present alert and oriented X3 Skin Skin exam: Present dry, erythema, rash and warm; Absent intact Additional comments: Erythematic rash bilateral lower extremities with warmth and tenderness to touch OBJ DATA Labs CBC & Chem 7: 06/07/22 05:28 06/07/22 05:28 Labs: Abnormal Lab Results 06/07/22 06/07/22 06/06/22 05:28 05:28 12:49 RBC 2.40 L Hgb 7.3 L Hct 22.6 L POC Hct RDW 14.9 H MPV 8.2 L Lymph % (Auto) 9.9 L Eos % (Auto) 35.7 H Lymph # (Auto) 0.48 L Eos # (Auto) 1.73 H POC Sodium Sodium 131 L Carbon Dioxide 20 L POC Total CO2 POC BUN POC Creatinine Glucose 63 L Calcium 8.2 L AST 42 H C-Reactive Protein Total Protein 5.2 L Albumin 1.8 L Albumin/Globulin Ratio 0.5 L Procalcitonin Urine Appearance Turbid A Urine Protein >=500 A Ur Leukocyte Esterase 250 A Urine RBC > 182 H Urine WBC > 182 H Triple Phos Crystals Few A Amorphous Crystals Few A Urine Mucus Many A POC Troponin I 06/06/22 06/06/22 06/06/22 11:19 11:18 11:18 RBC 2.62 L Hgb 7.8 L Hct 23.5 L POC Hct RDW 14.7 H MPV 8.1 L Lymph % (Auto) 15.0 L Eos % (Auto) 20.6 H Lymph # (Auto) 0.81 L Eos # (Auto) 1.11 H POC Sodium Sodium Carbon Dioxide POC Total CO2 POC BUN POC Creatinine Glucose Calcium AST 62 H C-Reactive Protein 12.90 H Total Protein 5.8 L Albumin 2.4 L Albumin/Globulin Ratio Procalcitonin 0.28 H Urine Appearance Urine Protein Ur Leukocyte Esterase Urine RBC Urine WBC Triple Phos Crystals Amorphous Crystals Urine Mucus POC Troponin I 06/06/22 06/06/22 11:09 11:07 RBC Hgb Hct POC Hct 24.0 L RDW MPV Lymph % (Auto) Eos % (Auto) Lymph # (Auto) Eos # (Auto) POC Sodium 131 L Sodium Carbon Dioxide POC Total CO2 20.0 L POC BUN 24 H POC Creatinine 1.4 H Glucose Calcium AST C-Reactive Protein Total Protein Albumin Albumin/Globulin Ratio Procalcitonin Urine Appearance Urine Protein Ur Leukocyte Esterase Urine RBC Urine WBC Triple Phos Crystals Amorphous Crystals Urine Mucus POC Troponin I 0.01 L Meds: Medications Acetaminophen (Acetaminophen 500 Mg Tablet) 500 mg PO Q6HP PRN PRN Reason: Pain, Mild Acetaminophen (Acetaminophen 325 Mg Tablet) 650 mg PO Q6HP PRN; Protocol PRN Reason: Per Pain Protocol/Fever > 101 Last Admin: 06/07/22 11:13 Dose: 650 mg Albuterol/Ipratropium (Ipratropium/Albuterol 3 Ml Ampul.Neb) 3 ml NEB Q4HP PRN PRN Reason: Wheezing Aspirin (Aspirin 81 Mg Tab.Chew) 81 mg PO QDAY [facility] Last Admin: 06/07/22 09:10 Dose: 81 mg Ferrous Sulfate (Ferrous Sulfate 325 Mg Tablet) 325 mg PO BID@1200,1730 [facility] Last Admin: 06/07/22 11:25 Dose: 325 mg Sodium Chloride (Sodium Chloride 0.9%) 1,000 mls @ 75 mls/hr IV .[id number] [facility] Last Admin: 06/06/22 21:18 Dose: 75 mls/hr Vancomycin HCl 1,000 mg/ (Sodium Chloride) 250 mls @ 250 mls/hr IV Q24H [facility] Last Infusion: 06/07/22 10:42 Dose: Infused Piperacillin Sod/Tazobactam (Sod 2.25 gm/ Dextrose) 50 mls @ 100 mls/hr IV Q6H [facility] Last Admin: 06/07/22 11:23 Dose: 100 mls/hr Iron Carb/Multivit/Antenna Machine Operator/Folic Acid (Multivit,Ther Iron,Ca,Fa & Min 1 Tablet) 1 tab PO QDAY [facility] Last Admin: 06/07/22 09:10 Dose: 1 tab Levothyroxine Sodium (Levothyroxine 125 Mcg Tablet) 125 mcg PO QAMAC [facility] Last Admin: 06/07/22 07:06 Dose: 125 mcg Montelukast Sodium (Montelukast 10 Mg Tablet) 10 mg PO QPM [facility] Last Admin: 06/06/22 21:16 Dose: 10 mg Morphine Sulfate (Morphine 4 Mg/Ml Vial) 4 mg IV Q4HP PRN; Protocol PRN Reason: Per Pain Protocol Ondansetron HCl (Ondansetron 4 Mg/2 Ml Vial) 4 mg IV Q6HP PRN PRN Reason: Nausea And Vomiting Oxycodone HCl (Oxycodone Hcl 5 Mg Tablet) 5 mg PO Q4HP PRN; Protocol PRN Reason: Per Pain Protocol Last Admin: 06/07/22 11:13 Dose: 5 mg Sodium Chloride (Sodium Chloride 1 Gm Tablet) 1 gm PO QDAY [facility] Last Admin: 06/07/22 09:10 Dose: 1 gm Sodium Chloride (0.9 % Sodium Chloride 10 Ml Syringe) 10 ml IV Q8 [facility] Last Admin: 06/07/22 06:07 Dose: Not Given Tamsulosin HCl (Tamsulosin 0.4 Mg Capsule) 0.4 mg PO HS [facility] Last Admin: 06/06/22 21:16 Dose: 0.4 mg Theophylline (Theophylline Anhydrous 400 Mg Tab.Xl.24h) 400 mg PO DAILY [facility] Last Admin: 06/07/22 09:35 Dose: Not Given Trazodone HCl (Trazodone Hcl 50 Mg Tablet) 25 mg PO HSP PRN PRN Reason: Insomnia Vancomycin HCl (Vancomycin Per Pharmacy) 1 order IV UD [facility]; Protocol A/P Assessment and plan (1) Cellulitis of both lower extremities: Status: Acute (2) Colitis: Status: Acute (3) UTI (urinary tract infection): Status: Acute (4) Developmental delay: Status: Acute (5) 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 Bilateral lower extremities cellulitis, history of xerosis cutis: Inpatient med surg Serial lactic acid Procalcitonin level 0.28 Wound culture, no growth to date Blood culture, no growth to date cbc w/ auto diff in the morning to trend WBC MRSA screening POSITIVE Vancomycin Zosyn Wound care consult, recs. appreciated Physical therapy 2. UTI: Serial lactic acid Procalcitonin level 0.28 Urine culture, no growth to date Blood culture, no growth to date cbc w/ auto diff in the morning to trend WBC Exchange [place] catheter Vancomycin Zosyn 3. Sigmoid colitis: Serial lactic acid Procalcitonin level Blood culture, no growth to date cbc w/ auto diff in the morning to trend WBC Vancomycin Zosyn 4. Slow growing left renal cell carcinoma: Continue outpatient monitoring with serial CT imaging 5. h/o left saphenous vein: Holding Eliquis due to worsening anemia 6. Chronic kidney disease stage III with associated anemia: Avoid nephrotoxic agents NS@75cc/hr CMP in the morning to trend kidney functions cbc w/ auto diff in the morning to trend H/H Ferrous sulfate 7. h/o developmental delay: Physical therapy GI ppx: not currently indicated DVT ppx: Holding Eliquis due to worsening anemia Code status: Full Prognosis: guarded Disposition: inpatient med surg; PT Time Spent With Patient Time: Total time spent is greater than 50% in coordination of care (as documented) at patient's floor/unit and/or counseling patient: Total time spent with greater than 50% in coordination of care (as documented) at patient's floor/unit and/or counseling patient:: 25 - 35 minutes
[2022-06-07] MEDS: 0.9 % SODIUM CHLORIDE 1,000 ML IV SCH ×2 (12:17→22:16)
--- NOTE | 2022-06-07 17:28 | General Surgery Progress Note ---
SUBJECTIVE Subjective Patient information: Note initiated : 06/07/22 at 5:22 pm Service Date, if different from initiated Date: [] Patient: Harsh Zamarripa 86 y/o M admitted on 06/06/22 for weakness, low blood pressure.. Chief Complaint: [] Additional PMFSH (Level 3 Only): Saw patient along with Christopher Price RN and Samantha RN. Patient's brother was in room during examination. Examined leg wound and Sacral and Right posterior chest wall Pressure areas. Reviewed lab results and CT findings Constitutional Vitals: Vital Signs Temp Pulse Resp BP Pulse Ox O2 Del Method 97.4 F 64 16 128/54 96 06/07/22 16:03 06/07/22 16:03 06/07/22 16:03 06/07/22 16:03 06/07/22 16:03 06/07/22 16:03 Period Temp Pulse Resp BP Sys/Bernal Pulse Ox O2 Del Method O2 Flow Rate Last 24 Hr 97 F-97.7 F 64-85 16-20 112-134/53-64 95-98 Room Air-Room Air Intake and Output 06/07/22 06/07/22 06/07/22 05:59 13:59 21:59 Intake Total 250 2034 480 Output Total 175 475 Balance 75 2034 5 Weight 127 lb 11.2 oz Patient Weight 06/08/22 05:59 Weight 127 lb 11.2 oz Intake & Output: Intake & Output 06/07/22 06/07/22 06/07/22 05:59 13:59 21:59 Intake Total 250 2034 480 Output Total 175 475 Balance 75 2034 5 Weight 127 lb 11.2 oz Intake: Nourishment/Supplement quantity 237 240 (ml) IV 250 1400 Sodium Chloride 0.9% 1,000 ml @ 1000 75 mls/hr IV .[id number] [facility] Rx#: [id number] Zosyn 2.25 gm In Dextrose 5% in 150 Water 50 ml @ 100 mls/hr IV Q6H [facility] Rx#:[id number] Vancomycin 1,000 mg In Sodium 250 250 Chloride 0.9% 250 ml @ 250 mls/ hr IV Q24H [facility] Rx#:[id number] Oral 397 240 Output: Urine Catheter Amount 175 Void Amount 475 Other: Meal Breakfast Lunch Percent of Meal Consumed 100% 75% Feeding Ability Independent Independent Nourishment/Supplement name Ensure Ensure Urine Appearance Cloudy Clear Mucous Threads Urine Color Dark Yellow Bright Yellow Stool Size Small Stool Color Brown Stool Consistency Soft # Bowel Movements 1 Exam: AVSS. Patient is comfortable. No distress. HD stable. Continues to be on IV antibiotics for UTI. Leg wound sites and dermatitis responding well , Continue MIST treatments. Chronic Stage sacral skin PU sites. Perineal and scrotal fungal dermatitis. A/P Narrative A/P Narrative: Assessment: Satisfactory progress from skin and wound care point of view. Plan of Treatment: Plan: Continue current wound care as discussed with nursing staff at bedside. Will follow patient during his hospitalization. Time Spent With Patient Time: Total time spent is greater than 50% in coordination of care (as documented) at patient's floor/unit and/or counseling patient: Total time spent with greater than 50% in coordination of care (as documented) at patient's floor/unit and/or counseling patient:: 25 - 35 minutes
[2022-06-07] MEDS: MONTELUKAST 10 MG TABLET PO SCH (20:58)
[2022-06-07] MEDS: TAMSULOSIN 0.4 MG CAPSULE PO SCH (20:58)
[2022-06-08] MEDS: 0.9 % SODIUM CHLORIDE 1,000 ML IV SCH ×2 (04:32→10:31)
[2022-06-08] MEDS: 0.9 % SODIUM CHLORIDE 10 ML SYRINGE IV SCH ×5 (05:03→23:08)
[2022-06-08] MEDS: PIPERACILLIN SODIUM/TAZOBACTAM 2.25 GM in DEXTROSE 5% IN WATER 50 ML IV SCH ×4 (05:03→23:08)
[2022-06-08 06:54] LABS: Basophils # (Auto) 0.03 K/mcL (0.00-0.30); Basophils % (Auto) 0.4 % (0.0-2.0); Eosinophils # (Auto) 2.45 K/mcL (0.00-0.70); Eosinophils % (Auto) 35.9 % (0.0-7.0); Hematocrit 22.1 % (40.1-51.0); Hemoglobin 7.2 g/dL (13.7-17.5); Lymphocytes # (Auto) 0.78 K/mcL (1.50-4.80); Lymphocytes % (Auto) 11.4 % (15.5-49.0); Mean Cell Volume 92.1 fL (80.0-100.0); Mean Corpuscular HGB Conc 32.6 g/dL (31.0-36.0); Mean Platelet Volume 8.2 fL (8.8-12.5); Monocytes # (Auto) 0.37 K/mcL (0.10-0.90); Monocytes % (Auto) 5.4 % (1.0-12.0); Neutrophils % (Auto) 46.5 % (38.0-78.0); Platelet Count 275 K/mcL (140-440); WBC 6.8 K/mcL (4.5-11.0)
[2022-06-08 07:26] LABS: ALT/SGPT 26 U/L (<40); AST/SGOT 25 U/L (<40); Albumin 1.8 gm/dL (3.2-5.2); Albumin/Globulin Ratio 0.5 (1.0-2.3); Alkaline Phosphatase 69 U/L (39-117); Bilirubin,Total < 0.2 mg/dL (0.1-1.0); Blood Urea Nitrogen 19 mg/dL (8-23); Calcium 8.2 mg/dL (8.6-10.4); Carbon Dioxide 21 mmol/L (22-30); Chloride 105 mmol/L (96-108); Globulin 3.4 gm/dL (2.2-3.7); Glomerular Filtration Rate 79; Glucose 98 mg/dL (70-105)
[2022-06-08 07:27] LABS: Phosphorous 2.7 mg/dL (2.5-4.5)
[2022-06-08] MEDS: LEVOTHYROXINE 125 MCG TABLET PO SCH (07:55)
[2022-06-08] MEDS: ASPIRIN 81 MG TAB.CHEW PO SCH (10:17)
[2022-06-08] MEDS: MULTIVIT,THER IRON,CA,FA & MIN 1 TABLET PO SCH (10:18)
[2022-06-08] MEDS: SODIUM CHLORIDE 1 GM TABLET PO SCH (10:18)
[2022-06-08] MEDS: MUPIROCIN OINT 2% 22GM NARES SCH ×2 (10:19→19:31)
[2022-06-08] MEDS: THEOPHYLLINE ANHYDROUS 400 MG TAB.XL.24H PO SCH (10:20)
--- NOTE | 2022-06-08 14:46 | Internal Med Progress Note ---
SUBJECTIVE Subjective Patient information: Note initiated : 06/08/22 at 2:40 pm Service Date, if different from initiated Date: [] Patient: Harsh Zamarripa a 86 y/o M admitted on 06/06/22 for weakness, low blood pressure.. Chief Complaint: [] Interval history: Mr. 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 The following history is limited by the patient's history of developmental delay and is status get her by his brother present at the bedside. It was reported that the patient has at least 4 days of diarrhea and progressive worsening general weakness with falls at home. His brother decided to send the patient to our ER for further evaluations because he cannot take care of the patient at home anymore. No reported fever chills or diaphoresis. Patient denies any nausea or vomiting. Denies any abdominal pain. Patient denies any weight number symptoms. Patient has indwelling urinary catheter placed and being exchanged monthly last exchanged in May 26, 2022. His brother also reported worsening bilateral lower legs wounds. Vital signs significant for initial hypotension with reported systolic blood pressure in the 70s but after fluid boluses given, now the blood pressures normalized to 136/56 mmHg. Rest of the vital signs are within normal limits and there is no fever noted. Labs significant for WBC of 5.4, H&H 7.8 and 23.5, respectively. Lactic acid 0.8. UA suggesting the presence of urinary tract infections. Chest x-ray unremarkable. CT of the abdomen and pelvis showing distal sigmoid colitis and proctitis. It also shows a 2.7 cm in homogeneously enhancing mass inferior pole of the left kidney increased in size relative to previous study 1.5 years ago consistent with slow-growing stage I renal cell carcinoma. No evidence of metastatic disease. 06/07: Patient has been afebrile overnight. Patient is on room air. WBC 4.8. Blood culture, urine culture, wound culture no growth to date. C. difficile negative. MRSA screening positive. Patient is currently comfortable denies any pain or discomfort. Denies any subjective fever or chills or diaphoresis. Continue vancomycin and Zosyn while waiting for culture results. Wound care folder bilateral legs cellulitis as per Dr. Lyon. Physical therapy evaluation and treatment for placement planning. 06/08: Patient has been afebrile overnight. Patient is on room air. Blood culture no growth to date, urine culture no growth to date, wound culture growing s. aureus and swarming Proteus with sensitivity pending. Patient is currently comfortable denies any pain or discomfort. Denies any subjective fever or chills or diaphoresis. Continue vancomycin and Zosyn while waiting for culture results. Wound care folder bilateral legs cellulitis as per Dr. Lyon. Physical therapy recommends SNF placement. Constitutional Vitals: Vital Signs Temp Pulse Resp BP Pulse Ox O2 Del Method 36.7 C 69 22 118/64 96 06/08/22 12:00 06/08/22 12:00 06/08/22 12:00 06/08/22 12:00 06/08/22 12:00 06/08/22 12:00 Period Temp Pulse Resp BP Sys/Bernal Pulse Ox O2 Del Method O2 Flow Rate Last 24 Hr 36.3 C-37.1 C 63-82 16-24 98-147/42-67 90-96 Room Air-Room Air Intake and Output 06/08/22 06/08/22 06/08/22 05:59 13:59 21:59 Intake Total 1350 Output Total 350 Balance 1000 Intake & Output: Intake & Output 06/08/22 06/08/22 06/08/22 05:59 13:59 21:59 Intake Total 1350 Output Total 350 Balance 1000 Intake: IV 1100 Sodium Chloride 0.9% 1,000 ml @ 1000 75 mls/hr IV .[id number] [facility] Rx#: [id number] Zosyn 2.25 gm In Dextrose 5% in 100 Water 50 ml @ 100 mls/hr IV Q6H [facility] Rx#:[id number] Oral 250 Output: Urine Catheter Amount 350 Other: Urine Appearance Clear Uretheral ([place]) Clear Urine Color Yellow Uretheral ([place]) Yellow Head Head exam: Present atraumatic and normal inspection Eye Eye exam: Present normal appearance ENT ENT exam: Present mucous membranes moist, normal exam and normal external ear exam Neck Neck exam: Present normal inspection Respiratory Respiratory exam: Present normal respiratory exam Cardiovascular Cardiovascular exam: Present normal rate and rhythm GI/Abdominal GI/Abdominal exam: Present normal bowel sounds Additional comments: [place] catheter in place Back Exam Back exam: Present normal inspection Neurological Exam Neurological exam: Present alert and oriented X3 Skin Skin exam: Present dry; Absent intact Additional comments: Erythematic rash bilateral lower extremities with warmth and tenderness to touch OBJ DATA Labs CBC & Chem 7: 06/08/22 05:32 06/08/22 05:30 Labs: Abnormal Lab Results 06/08/22 06/08/22 06/07/22 05:32 05:30 05:28 RBC 2.40 L Hgb 7.2 L Hct 22.1 L POC Hct RDW 15.0 H MPV 8.2 L Lymph % (Auto) 11.4 L Eos % (Auto) 35.9 H Lymph # (Auto) 0.78 L Eos # (Auto) 2.45 H POC Sodium Sodium 131 L Carbon Dioxide 21 L 20 L POC Total CO2 Anion Gap 7.0 L POC BUN POC Creatinine Glucose 63 L Calcium 8.2 L 8.2 L AST 42 H C-Reactive Protein Total Protein 5.2 L 5.2 L Albumin 1.8 L 1.8 L Albumin/Globulin Ratio 0.5 L 0.5 L Procalcitonin Urine Appearance Urine Protein Ur Leukocyte Esterase Urine RBC Urine WBC Triple Phos Crystals Amorphous Crystals Urine Mucus POC Troponin I 06/07/22 06/06/22 06/06/22 05:28 12:49 11:19 RBC 2.40 L Hgb 7.3 L Hct 22.6 L POC Hct RDW 14.9 H MPV 8.2 L Lymph % (Auto) 9.9 L Eos % (Auto) 35.7 H Lymph # (Auto) 0.48 L Eos # (Auto) 1.73 H POC Sodium Sodium Carbon Dioxide POC Total CO2 Anion Gap POC BUN POC Creatinine Glucose Calcium AST C-Reactive Protein Total Protein Albumin Albumin/Globulin Ratio Procalcitonin 0.28 H Urine Appearance Turbid A Urine Protein >=500 A Ur Leukocyte Esterase 250 A Urine RBC > 182 H Urine WBC > 182 H Triple Phos Crystals Few A Amorphous Crystals Few A Urine Mucus Many A POC Troponin I 06/06/22 06/06/22 06/06/22 11:18 11:18 11:09 RBC 2.62 L Hgb 7.8 L Hct 23.5 L POC Hct RDW 14.7 H MPV 8.1 L Lymph % (Auto) 15.0 L Eos % (Auto) 20.6 H Lymph # (Auto) 0.81 L Eos # (Auto) 1.11 H POC Sodium Sodium Carbon Dioxide POC Total CO2 Anion Gap POC BUN POC Creatinine Glucose Calcium AST 62 H C-Reactive Protein 12.90 H Total Protein 5.8 L Albumin 2.4 L Albumin/Globulin Ratio Procalcitonin Urine Appearance Urine Protein Ur Leukocyte Esterase Urine RBC Urine WBC Triple Phos Crystals Amorphous Crystals Urine Mucus POC Troponin I 0.01 L 06/06/22 11:07 RBC Hgb Hct POC Hct 24.0 L RDW MPV Lymph % (Auto) Eos % (Auto) Lymph # (Auto) Eos # (Auto) POC Sodium 131 L Sodium Carbon Dioxide POC Total CO2 20.0 L Anion Gap POC BUN 24 H POC Creatinine 1.4 H Glucose Calcium AST C-Reactive Protein Total Protein Albumin Albumin/Globulin Ratio Procalcitonin Urine Appearance Urine Protein Ur Leukocyte Esterase Urine RBC Urine WBC Triple Phos Crystals Amorphous Crystals Urine Mucus POC Troponin I Meds: Medications Acetaminophen (Acetaminophen 500 Mg Tablet) 500 mg PO Q6HP PRN PRN Reason: Pain, Mild Acetaminophen (Acetaminophen 325 Mg Tablet) 650 mg PO Q6HP PRN; Protocol PRN Reason: Per Pain Protocol/Fever > 101 Last Admin: 06/07/22 11:13 Dose: 650 mg Albuterol/Ipratropium (Ipratropium/Albuterol 3 Ml Ampul.Neb) 3 ml NEB Q4HP PRN PRN Reason: Wheezing Aspirin (Aspirin 81 Mg Tab.Chew) 81 mg PO QDAY [facility] Last Admin: 06/08/22 10:17 Dose: 81 mg Ferrous Sulfate (Ferrous Sulfate 325 Mg Tablet) 325 mg PO BID@1200,1730 [facility] Last Admin: 06/07/22 17:10 Dose: 325 mg Sodium Chloride (Sodium Chloride 0.9%) 1,000 mls @ 75 mls/hr IV .[id number] [facility] Last Admin: 06/08/22 10:31 Dose: Not Given Vancomycin HCl 1,000 mg/ (Sodium Chloride) 250 mls @ 250 mls/hr IV Q24H [facility] Last Infusion: 06/07/22 10:42 Dose: Infused Piperacillin Sod/Tazobactam (Sod 2.25 gm/ Dextrose) 50 mls @ 100 mls/hr IV Q6H [facility] Last Admin: 06/08/22 12:15 Dose: 100 mls/hr Iron Carb/Multivit/[employer]/Folic Acid (Multivit,Ther Iron,Ca,Fa & Min 1 Tablet) 1 tab PO QDAY [facility] Last Admin: 06/08/22 10:18 Dose: 1 tab Levothyroxine Sodium (Levothyroxine 125 Mcg Tablet) 125 mcg PO QAMAC [facility] Last Admin: 06/08/22 07:55 Dose: 125 mcg Montelukast Sodium (Montelukast 10 Mg Tablet) 10 mg PO QPM [facility] Last Admin: 06/07/22 20:58 Dose: 10 mg Morphine Sulfate (Morphine 4 Mg/Ml Vial) 4 mg IV Q4HP PRN; Protocol PRN Reason: Per Pain Protocol Mupirocin (Mupirocin Oint 2% 22gm) 1 dose NARES BID [facility] Last Admin: 06/08/22 10:19 Dose: 1 dose Ondansetron HCl (Ondansetron 4 Mg/2 Ml Vial) 4 mg IV Q6HP PRN PRN Reason: Nausea And Vomiting Oxycodone HCl (Oxycodone Hcl 5 Mg Tablet) 5 mg PO Q4HP PRN; Protocol PRN Reason: Per Pain Protocol Last Admin: 06/07/22 11:13 Dose: 5 mg Sodium Chloride (Sodium Chloride 1 Gm Tablet) 1 gm PO QDAY [facility] Last Admin: 06/08/22 10:18 Dose: 1 gm Sodium Chloride (0.9 % Sodium Chloride 10 Ml Syringe) 10 ml IV Q8 [facility] Last Admin: 06/08/22 05:03 Dose: Not Given Tamsulosin HCl (Tamsulosin 0.4 Mg Capsule) 0.4 mg PO HS [facility] Last Admin: 06/07/22 20:58 Dose: 0.4 mg Theophylline (Theophylline Anhydrous 400 Mg Tab.Xl.24h) 400 mg PO DAILY [facility] Last Admin: 06/08/22 10:20 Dose: Not Given Trazodone HCl (Trazodone Hcl 50 Mg Tablet) 25 mg PO HSP PRN PRN Reason: Insomnia Vancomycin HCl (Vancomycin Per Pharmacy) 1 order IV UD [facility]; Protocol A/P Assessment and plan (1) Cellulitis of both lower extremities: Status: Acute (2) Colitis: Status: Acute (3) UTI (urinary tract infection): Status: Acute (4) Developmental delay: Status: Acute (5) 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 Bilateral lower extremities cellulitis, history of xerosis cutis: Inpatient med surg Serial lactic acid Procalcitonin level 0.28 Wound culture, s aureus and swarming proteus Blood culture, no growth to date cbc w/ auto diff in the morning to trend WBC MRSA screening POSITIVE Vancomycin Zosyn Wound care consult, recs. appreciated Physical therapy 2. UTI: Serial lactic acid Procalcitonin level 0.28 Urine culture, no growth to date Blood culture, no growth to date cbc w/ auto diff in the morning to trend WBC Exchange [place] catheter Vancomycin Zosyn 3. Sigmoid colitis: Serial lactic acid Procalcitonin level Blood culture, no growth to date cbc w/ auto diff in the morning to trend WBC Vancomycin Zosyn 4. Slow growing left renal cell carcinoma: Continue outpatient monitoring with serial CT imaging 5. h/o left saphenous vein: Holding Eliquis due to worsening anemia 6. Chronic kidney disease stage III with associated anemia: Avoid nephrotoxic agents Saline lock CMP in the morning to trend kidney functions cbc w/ auto diff in the morning to trend H/H Ferrous sulfate 7. h/o developmental delay: Physical therapy GI ppx: not currently indicated DVT ppx: Holding Eliquis due to worsening anemia Code status: Full Prognosis: guarded Disposition: inpatient med surg; [facility] Plan of Treatment: Plan: Continue current wound care as discussed with nursing staff at bedside. Will follow patient during his hospitalization. Time Spent With Patient Time: Total time spent is greater than 50% in coordination of care (as documented) at patient's floor/unit and/or counseling patient: Total time spent with greater than 50% in coordination of care (as documented) at patient's floor/unit and/or counseling patient:: 25 - 35 minutes
[2022-06-08] MEDS: FERROUS SULFATE 325 MG TABLET PO SCH ×2 (15:19→17:30)
[2022-06-08] MEDS: VANCOMYCIN 1,000 MG in 0.9 % SODIUM CHLORIDE 250 ML IV SCH (15:23)
[2022-06-08] MEDS: oxyCODONE HCL 5 MG TABLET PO PRN (17:29)
[2022-06-08] MEDS: TAMSULOSIN 0.4 MG CAPSULE PO SCH (19:31)
[2022-06-08] MEDS: MONTELUKAST 10 MG TABLET PO SCH (19:31)
[2022-06-09] MEDS: PIPERACILLIN SODIUM/TAZOBACTAM 2.25 GM in DEXTROSE 5% IN WATER 50 ML IV SCH ×2 (05:28→12:36)
[2022-06-09] MEDS: 0.9 % SODIUM CHLORIDE 10 ML SYRINGE IV SCH ×3 (05:28→20:15)
[2022-06-09 07:43] LABS: Basophils # (Auto) 0.02 K/mcL (0.00-0.30); Basophils % (Auto) 0.3 % (0.0-2.0); Hematocrit 23.8 % (40.1-51.0); Hemoglobin 7.3 g/dL (13.7-17.5); Lymphocytes # (Auto) 2.11 K/mcL (1.50-4.80); Lymphocytes % (Auto) 29.3 % (15.5-49.0); Mean Cell Volume 97.5 fL (80.0-100.0); Mean Corpuscular HGB Conc 30.7 g/dL (31.0-36.0); Monocytes # (Auto) 0.43 K/mcL (0.10-0.90); Platelet Count 278 K/mcL (140-440); RBC 2.44 M/mcL (4.63-6.08); Red Cell Distribution Width 15.7 % (11.5-14.5); WBC 7.2 K/mcL (4.5-11.0)
[2022-06-09 08:44] LABS: ALT/SGPT 24 U/L (<40); AST/SGOT 20 U/L (<40); Albumin 1.8 gm/dL (3.2-5.2); Albumin/Globulin Ratio 0.5 (1.0-2.3); Alkaline Phosphatase 53 U/L (39-117); Bilirubin,Total 0.2 mg/dL (0.1-1.0); Blood Urea Nitrogen 16 mg/dL (8-23); Calcium 8.3 mg/dL (8.6-10.4); Carbon Dioxide 21 mmol/L (22-30); Chloride 104 mmol/L (96-108); Globulin 3.5 gm/dL (2.2-3.7); Glomerular Filtration Rate 79; Glucose 82 mg/dL (70-105); Phosphorous 2.9 mg/dL (2.5-4.5)
[2022-06-09] MEDS: FERROUS SULFATE 325 MG TABLET PO SCH ×2 (11:21→18:06)
[2022-06-09] MEDS: MULTIVIT,THER IRON,CA,FA & MIN 1 TABLET PO SCH (11:21)
[2022-06-09] MEDS: ASPIRIN 81 MG TAB.CHEW PO SCH (11:23)
[2022-06-09] MEDS: VANCOMYCIN 1,000 MG in 0.9 % SODIUM CHLORIDE 250 ML IV SCH (11:23)
[2022-06-09] MEDS: MUPIROCIN OINT 2% 22GM NARES SCH ×2 (11:24→20:14)
[2022-06-09] MEDS: LEVOTHYROXINE 125 MCG TABLET PO SCH (11:24)
[2022-06-09] MEDS: SODIUM CHLORIDE 1 GM TABLET PO SCH (11:24)
[2022-06-09] MEDS: THEOPHYLLINE ANHYDROUS 400 MG TAB.XL.24H PO SCH (11:25)
--- NOTE | 2022-06-09 14:35 | Internal Med Progress Note ---
SUBJECTIVE Subjective Patient information: Note initiated : 06/09/22 at 2:30 pm Service Date, if different from initiated Date: [] Patient: Harsh Zamarripa a 86 y/o M admitted on 06/06/22 for weakness, low blood pressure.. Chief Complaint: [] Interval history: Mr. 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 The following history is limited by the patient's history of developmental delay and is status get her by his brother present at the bedside. It was reported that the patient has at least 4 days of diarrhea and progressive worsening general weakness with falls at home. His brother decided to send the patient to our ER for further evaluations because he cannot take care of the patient at home anymore. No reported fever chills or diaphoresis. Patient denies any nausea or vomiting. Denies any abdominal pain. Patient denies any weight number symptoms. Patient has indwelling urinary catheter placed and being exchanged monthly last exchanged in May 26, 2022. His brother also reported worsening bilateral lower legs wounds. Vital signs significant for initial hypotension with reported systolic blood pressure in the 70s but after fluid boluses given, now the blood pressures normalized to 136/56 mmHg. Rest of the vital signs are within normal limits and there is no fever noted. Labs significant for WBC of 5.4, H&H 7.8 and 23.5, respectively. Lactic acid 0.8. UA suggesting the presence of urinary tract infections. Chest x-ray unremarkable. CT of the abdomen and pelvis showing distal sigmoid colitis and proctitis. It also shows a 2.7 cm in homogeneously enhancing mass inferior pole of the left kidney increased in size relative to previous study 1.5 years ago consistent with slow-growing stage I renal cell carcinoma. No evidence of metastatic disease. 06/07: Patient has been afebrile overnight. Patient is on room air. WBC 4.8. Blood culture, urine culture, wound culture no growth to date. C. difficile negative. MRSA screening positive. Patient is currently comfortable denies any pain or discomfort. Denies any subjective fever or chills or diaphoresis. Continue vancomycin and Zosyn while waiting for culture results. Wound care folder bilateral legs cellulitis as per Dr. Lyon. Physical therapy evaluation and treatment for placement planning. 06/08: Patient has been afebrile overnight. Patient is on room air. Blood culture no growth to date, urine culture no growth to date, wound culture growing s. aureus and swarming Proteus with sensitivity pending. Patient is currently comfortable denies any pain or discomfort. Denies any subjective fever or chills or diaphoresis. Continue vancomycin and Zosyn while waiting for culture results. Wound care folder bilateral legs cellulitis as per Dr. Lyon. Physical therapy recommends SNF placement. 06/09: Patient has been afebrile overnight. Patient is on room air. Blood culture no growth to date, urine culture no growth to date, wound culture growing MRSA and P mirabilis. Patient is currently comfortable denies any pain or discomfort. Denies any subjective fever or chills or diaphoresis. D/c Vancomycin and Zosyn, switch to Bactrim DS according to sensitivity reports. Wound care with mist treatment daily. Pending SNF placement 06/10. Constitutional Vitals: Vital Signs Temp Pulse Resp BP Pulse Ox O2 Del Method O2 Flow Rate 36.4 C 65 16 101/54 93 2 06/09/22 12:00 06/09/22 12:00 06/09/22 12:00 06/09/22 12:00 06/09/22 12:00 06/09/22 12:00 06/08/22 16:44 Period Temp Pulse Resp BP Sys/Bernal Pulse Ox O2 Del Method O2 Flow Rate Last 24 Hr 36.3 C-37.0 C 65-85 16-24 101-133/52-79 88-98 Nasal Cannula- Room Air 2 Intake and Output 06/09/22 06/09/22 06/09/22 05:59 13:59 21:59 Intake Total 150 100 Output Total 600 Balance -450 100 Intake & Output: Intake & Output 06/09/22 06/09/22 06/09/22 05:59 13:59 21:59 Intake Total 150 100 Output Total 600 Balance -450 100 Intake: IV 50 100 Zosyn 2.25 gm In Dextrose 5% in 50 100 Water 50 ml @ 100 mls/hr IV Q6H [facility] Rx#:[id number] Oral 100 Output: Urine Catheter Amount 600 Other: Urine Appearance Uretheral ([place]) Clear Urine Color Uretheral ([place]) Yellow Head Head exam: Present atraumatic and normal inspection Eye Eye exam: Present normal appearance ENT ENT exam: Present mucous membranes moist, normal exam and normal external ear exam Neck Neck exam: Present normal inspection Respiratory Respiratory exam: Present normal respiratory exam Cardiovascular Cardiovascular exam: Present normal rate and rhythm GI/Abdominal GI/Abdominal exam: Present normal bowel sounds Back Exam Back exam: Present normal inspection Neurological Exam Neurological exam: Present alert and oriented X3 Skin Skin exam: Present abrasion, dry, erythema and warm; Absent intact Additional comments: Erythematic rash with skin discolorations bilateral lower legs. Dry skin in the entirety of his body especially in the extremities. OBJ DATA Labs CBC & Chem 7: 06/09/22 06:33 06/09/22 06:33 Labs: Abnormal Lab Results 06/09/22 06/09/22 06/08/22 06:33 06:33 05:32 RBC 2.44 L 2.40 L Hgb 7.3 L 7.2 L Hct 23.8 L 22.1 L MCHC 30.7 L RDW 15.7 H 15.0 H MPV 8.0 L 8.2 L Neut % (Auto) 32.0 L Lymph % (Auto) 11.4 L Eos % (Auto) 32.0 H 35.9 H Lymph # (Auto) 0.78 L Eos # (Auto) 2.30 H 2.45 H Sodium Carbon Dioxide 21 L Anion Gap Glucose Calcium 8.3 L AST Total Protein 5.3 L Albumin 1.8 L Albumin/Globulin Ratio 0.5 L Procalcitonin 06/08/22 06/07/22 06/07/22 05:30 05:28 05:28 RBC 2.40 L Hgb 7.3 L Hct 22.6 L MCHC RDW 14.9 H MPV 8.2 L Neut % (Auto) Lymph % (Auto) 9.9 L Eos % (Auto) 35.7 H Lymph # (Auto) 0.48 L Eos # (Auto) 1.73 H Sodium 131 L Carbon Dioxide 21 L 20 L Anion Gap 7.0 L Glucose 63 L Calcium 8.2 L 8.2 L AST 42 H Total Protein 5.2 L 5.2 L Albumin 1.8 L 1.8 L Albumin/Globulin Ratio 0.5 L 0.5 L Procalcitonin 06/06/22 11:19 RBC Hgb Hct MCHC RDW MPV Neut % (Auto) Lymph % (Auto) Eos % (Auto) Lymph # (Auto) Eos # (Auto) Sodium Carbon Dioxide Anion Gap Glucose Calcium AST Total Protein Albumin Albumin/Globulin Ratio Procalcitonin 0.28 H Meds: Medications Acetaminophen (Acetaminophen 500 Mg Tablet) 500 mg PO Q6HP PRN PRN Reason: Pain, Mild Acetaminophen (Acetaminophen 325 Mg Tablet) 650 mg PO Q6HP PRN; Protocol PRN Reason: Per Pain Protocol/Fever > 101 Last Admin: 06/07/22 11:13 Dose: 650 mg Albuterol/Ipratropium (Ipratropium/Albuterol 3 Ml Ampul.Neb) 3 ml NEB Q4HP PRN PRN Reason: Wheezing Last Admin: 06/09/22 05:29 Dose: 3 ml Aspirin (Aspirin 81 Mg Tab.Chew) 81 mg PO QDAY [facility] Last Admin: 06/09/22 11:23 Dose: 81 mg Ferrous Sulfate (Ferrous Sulfate 325 Mg Tablet) 325 mg PO BID@1200,1730 [facility] Last Admin: 06/09/22 11:21 Dose: 325 mg Iron Carb/Multivit/[place]/Folic Acid (Multivit,Ther Iron,Ca,Fa & Min 1 Tablet) 1 tab PO QDAY [facility] Last Admin: 06/09/22 11:21 Dose: 1 tab Levothyroxine Sodium (Levothyroxine 125 Mcg Tablet) 125 mcg PO QAMAC [facility] Last Admin: 06/09/22 11:24 Dose: 125 mcg Montelukast Sodium (Montelukast 10 Mg Tablet) 10 mg PO QPM [facility] Last Admin: 06/08/22 19:31 Dose: 10 mg Morphine Sulfate (Morphine 4 Mg/Ml Vial) 4 mg IV Q4HP PRN; Protocol PRN Reason: Per Pain Protocol Mupirocin (Mupirocin Oint 2% 22gm) 1 dose NARES BID [facility] Last Admin: 06/09/22 11:24 Dose: 1 dose Ondansetron HCl (Ondansetron 4 Mg/2 Ml Vial) 4 mg IV Q6HP PRN PRN Reason: Nausea And Vomiting Oxycodone HCl (Oxycodone Hcl 5 Mg Tablet) 5 mg PO Q4HP PRN; Protocol PRN Reason: Per Pain Protocol Last Admin: 06/08/22 17:29 Dose: 5 mg Sodium Chloride (Sodium Chloride 1 Gm Tablet) 1 gm PO QDAY [facility] Last Admin: 06/09/22 11:24 Dose: 1 gm Sodium Chloride (0.9 % Sodium Chloride 10 Ml Syringe) 10 ml IV Q8 [facility] Last Admin: 06/09/22 12:56 Dose: 10 ml Tamsulosin HCl (Tamsulosin 0.4 Mg Capsule) 0.4 mg PO HS [facility] Last Admin: 06/08/22 19:31 Dose: 0.4 mg Theophylline (Theophylline Anhydrous 400 Mg Tab.Xl.24h) 400 mg PO DAILY [facility] Last Admin: 06/09/22 11:25 Dose: Not Given Trazodone HCl (Trazodone Hcl 50 Mg Tablet) 25 mg PO HSP PRN PRN Reason: Insomnia A/P Assessment and plan (1) Cellulitis of both lower extremities: Status: Acute (2) Colitis: Status: Acute (3) UTI (urinary tract infection): Status: Acute (4) Developmental delay: Status: Acute (5) 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 Bilateral lower extremities cellulitis, history of xerosis cutis: Inpatient med surg Serial lactic acid Procalcitonin level 0.28 Wound culture growing MRSA and P mirabilis Blood culture, no growth to date cbc w/ auto diff in the morning to trend WBC MRSA screening POSITIVE D/c Vancomycin and Zosyn, switch to Bactrim DS according to sensitivity reports Wound care with mist therapy daily Physical therapy-->SNF 2. UTI: Serial lactic acid Procalcitonin level 0.28 Urine culture, no growth to date Blood culture, no growth to date cbc w/ auto diff in the morning to trend WBC Exchange [place] catheter D/c Vancomycin and Zosyn, switch to Bactrim DS 3. Sigmoid colitis: Serial lactic acid Procalcitonin level Blood culture, no growth to date cbc w/ auto diff in the morning to trend WBC D/c Vancomycin and Zosyn, switch to Bactrim DS 4. Slow growing left renal cell carcinoma: Continue outpatient monitoring with serial CT imaging 5. h/o left saphenous vein: Holding Eliquis due to worsening anemia 6. Chronic kidney disease stage III with associated anemia: Avoid nephrotoxic agents Saline lock CMP in the morning to trend kidney functions cbc w/ auto diff in the morning to trend H/H Ferrous sulfate 7. h/o developmental delay: Physical therapy GI ppx: not currently indicated DVT ppx: Holding Eliquis due to worsening anemia Code status: Full Prognosis: Stable Disposition: inpatient med surg; SNF Plan of Treatment: Plan: Continue current wound care as discussed with nursing staff at bedside. Will follow patient during his hospitalization. Time Spent With Patient Time: Total time spent is greater than 50% in coordination of care (as documented) at patient's floor/unit and/or counseling patient: Total time spent with greater than 50% in coordination of care (as documented) at patient's floor/unit and/or counseling patient:: 25 - 35 minutes
[2022-06-09] MEDS: TAMSULOSIN 0.4 MG CAPSULE PO SCH (20:14)
[2022-06-09] MEDS: SULFAMETHOXAZOLE/TRIMETHOPRIM 1 TABLET PO SCH (20:14)
[2022-06-09] MEDS: MONTELUKAST 10 MG TABLET PO SCH (20:15)
[2022-06-10] MEDS: 0.9 % SODIUM CHLORIDE 10 ML SYRINGE IV SCH (06:25)
[2022-06-10 07:39] LABS: Basophils # (Auto) 0.05 K/mcL (0.00-0.30); Basophils % (Auto) 0.8 % (0.0-2.0); Eosinophils # (Auto) 2.11 K/mcL (0.00-0.70); Eosinophils % (Auto) 33.9 % (0.0-7.0); Hemoglobin 7.9 g/dL (13.7-17.5); Lymphocytes # (Auto) 1.31 K/mcL (1.50-4.80); Mean Cell Volume 95.1 fL (80.0-100.0); Mean Corpuscular HGB Conc 31.6 g/dL (31.0-36.0); Mean Platelet Volume 8.2 fL (8.8-12.5); Monocytes # (Auto) 0.49 K/mcL (0.10-0.90); Monocytes % (Auto) 7.9 % (1.0-12.0); Neutrophils % (Auto) 35.6 % (38.0-78.0); Platelet Count 310 K/mcL (140-440); RBC 2.63 M/mcL (4.63-6.08); Red Cell Distribution Width 15.8 % (11.5-14.5); WBC 6.2 K/mcL (4.5-11.0)
[2022-06-10 08:28] LABS: ALT/SGPT 25 U/L (<40); AST/SGOT 20 U/L (<40); Albumin 1.9 gm/dL (3.2-5.2); Albumin/Globulin Ratio 0.6 (1.0-2.3); Alkaline Phosphatase 53 U/L (39-117); Bilirubin,Total < 0.2 mg/dL (0.1-1.0); Blood Urea Nitrogen 13 mg/dL (8-23); Calcium 8.5 mg/dL (8.6-10.4); Carbon Dioxide 25 mmol/L (22-30); Chloride 103 mmol/L (96-108); Globulin 3.4 gm/dL (2.2-3.7); Glomerular Filtration Rate 84; Glucose 69 mg/dL (70-105); Phosphorous 3.2 mg/dL (2.5-4.5)
[2022-06-10] MEDS: MUPIROCIN OINT 2% 22GM NARES SCH (08:41)
[2022-06-10] MEDS: SODIUM CHLORIDE 1 GM TABLET PO SCH (08:41)
[2022-06-10] MEDS: ASPIRIN 81 MG TAB.CHEW PO SCH (08:41)
[2022-06-10] MEDS: SULFAMETHOXAZOLE/TRIMETHOPRIM 1 TABLET PO SCH (08:41)
[2022-06-10] MEDS: LEVOTHYROXINE 125 MCG TABLET PO SCH (08:41)
[2022-06-10] MEDS: THEOPHYLLINE ANHYDROUS 400 MG TAB.XL.24H PO SCH (08:41)
[2022-06-10] MEDS: MULTIVIT,THER IRON,CA,FA & MIN 1 TABLET PO SCH (08:41)
--- NOTE | 2022-06-10 08:42 | Discharge Summary ---
Discharge Provider Provider IMPORTANT FOLLOW-UP INFORMATION FOR PCP: Patient information: Note initiated : 06/10/22 at 8:39 am Service Date, if different from initiated Date: [] Patient: Harsh Zamarripa 86 y/o M admitted on 06/06/22 for weakness, low blood pressure.. Chief Complaint: [] Date of admission: 06/06/22 19:30 Discharge date: 06/10/22 Primary care physician: Solitario Bo MD Attending physician on admission: Marlo Tee Consults: 06/06/22 12:47 Consult to Physician [CONS] Stat Comment: Consulting Provider: Lorenzo Lyon Reason For Exam: Physician to Consult 06/06/22 17:59 Consult to Physician [CONS] Stat Comment: Consulting Provider: Marlo Tee Reason For Exam: Physician to Consult Attending physician on discharge: Marlo Tee COURSE Hospital Course Hospital course: Mr. 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 The following history is limited by the patient's history of developmental delay and is status get her by his brother present at the bedside. It was reported that the patient has at least 4 days of diarrhea and progressive worsening general weakness with falls at home. His brother decided to send the patient to our ER for further evaluations because he cannot take care of the patient at home anymore. No reported fever chills or diaphoresis. Patient denies any nausea or vomiting. Denies any abdominal pain. Patient denies any weight number symptoms. Patient has indwelling urinary catheter placed and being exchanged monthly last exchanged in May 26, 2022. His brother also reported worsening bilateral lower legs wounds. Vital signs significant for initial hypotension with reported systolic blood pressure in the 70s but after fluid boluses given, now the blood pressures normalized to 136/56 mmHg. Rest of the vital signs are within normal limits and there is no fever noted. Labs significant for WBC of 5.4, H&H 7.8 and 23.5, respectively. Lactic acid 0.8. UA suggesting the presence of urinary tract infections. Chest x-ray unremarkable. CT of the abdomen and pelvis showing distal sigmoid colitis and proctitis. It also shows a 2.7 cm in homogeneously enhancing mass inferior pole of the left kidney increased in size relative to previous study 1.5 years ago consistent with slow-growing stage I renal cell carcinoma. No evidence of metastatic disease. 06/07: Patient has been afebrile overnight. Patient is on room air. WBC 4.8. Blood culture, urine culture, wound culture no growth to date. C. difficile negative. MRSA screening positive. Patient is currently comfortable denies any pain or discomfort. Denies any subjective fever or chills or diaphoresis. Continue vancomycin and Zosyn while waiting for culture results. Wound care folder bilateral legs cellulitis as per Dr. Lyon. Physical therapy evaluation and treatment for placement planning. 06/08: Patient has been afebrile overnight. Patient is on room air. Blood culture no growth to date, urine culture no growth to date, wound culture growing s. aureus and swarming Proteus with sensitivity pending. Patient is currently comfortable denies any pain or discomfort. Denies any subjective fever or chills or diaphoresis. Continue vancomycin and Zosyn while waiting for culture results. Wound care folder bilateral legs cellulitis as per Dr. Lyon. Physical therapy recom mends SNF placement. 06/09: Patient has been afebrile overnight. Patient is on room air. Blood culture no growth to date, urine culture no growth to date, wound culture growing MRSA and P mirabilis. Patient is currently comfortable denies any pain or discomfort. Denies any subjective fever or chills or diaphoresis. D/c Vancomycin and Zosyn, switch to Bactrim DS according to sensitivity reports. Wound care with mist treatment daily. Pending SNF placement 06/10. 06/10: Reached clinical stability, discharged to SNF. Discharge diagnosis: UTI, legs cellulitis, sigmoid colitis Time Spent with Patient Time attestation: Total time spent providing and/or coordinating discharge services: Time spent: Greater than 30 minutes EXAM Constitutional Vitals: Temp Pulse Resp BP Pulse Ox O2 Del Method O2 Flow Rate 36.5 C 73 16 155/70 91 2 06/10/22 07:53 06/10/22 03:40 06/10/22 07:53 06/10/22 07:53 06/10/22 07:53 06/10/22 07:53 06/08/22 16:44 General appearance: cooperative and no acute distress Head Head exam: Present atraumatic and normocephalic Eye Eye exam: Present EOMI and PERRL ENT ENT exam: Present mucous membranes moist, normal exam and normal external ear exam Neck Neck exam: Present normal inspection; Absent lymphadenopathy, tenderness or thyromegaly Respiratory Respiratory exam: Absent accessory muscle use, respiratory distress or wheezes Cardiovascular Cardiovascular exam: Present irregular rhythm; Absent JVD GI/Abdominal GI/Abdominal exam: Present normal bowel sounds and soft; Absent organomegaly or tenderness Rectal Rectal exam: Present deferred Extremities Exam Extremities exam: Present full ROM, normal capillary refill and tenderness; Absent normal inspection Additional comments: Erythematic rash with skin discolorations bilateral lower legs. Dry skin in the entirety of his body especially in the extremities. Neurological Exam Neurological exam: Present alert, CN II-XII intact and oriented X3; Absent motor sensory deficit Psychiatric Psychiatric exam: Present normal affect and normal mood; Absent anxious or depressed Skin Skin exam: Present dry; Absent intact Additional comments: Erythematic rash with skin discolorations bilateral lower legs. Dry skin in the entirety of his body especially in the extremities. Discharge Data Data Completed and Pending Labs on day of discharge: Labs from last 24 hours 06/10/22 06/10/22 06/09/22 05:05 05:05 06:33 WBC 6.2 RBC 2.63 L Hgb 7.9 L Hct 25.0 L MCV 95.1 MCH 30.0 MCHC 31.6 RDW 15.8 H Plt Count 310 MPV 8.2 L Immature Gran % (Auto) 0.8 H Neut % (Auto) 35.6 L Lymph % (Auto) 21.0 [place] % (Auto) 7.9 Eos % (Auto) 33.9 H Baso % (Auto) 0.8 Lymph # (Auto) 1.31 L [place] # (Auto) 0.49 Eos # (Auto) 2.11 H Baso # (Auto) 0.05 Immature Gran # 0.05 Absolute Neutrophils 2.22 Sodium 133 133 Potassium 4.9 4.5 Chloride 103 104 Carbon Dioxide 25 21 L Anion Gap 5.0 L 8.0 BUN 13 16 Creatinine 0.7 0.8 GFR Calculation 84 79 Glucose 69 L 82 Calcium 8.5 L 8.3 L Phosphorus 3.2 2.9 Magnesium 2.0 2.1 Total Bilirubin < 0.2 0.2 AST 20 20 ALT 25 24 Alkaline Phosphatase 53 53 Total Protein 5.3 L 5.3 L Albumin 1.9 L 1.8 L Globulin 3.4 3.5 Albumin/Globulin Ratio 0.6 L 0.5 L Preliminary micro results at discharge 06/06/22 11:15 Blood Culture - Preliminary Blood 06/06/22 11:11 Blood Culture - Preliminary Blood 06/06/22 13:28 Gram Stain - Preliminary Foot - Left Wound Culture - Preliminary Methicillin resistant s.aureus Proteus mirabilis Discharge Plan Patient/Caregiver Discharge Instructions Activity: increase activity as tolerated Diet: Regular Diet Prescriptions: New sulfamethoxazole-trimethoprim 800-160 mg Tablet 1 tab PO BID Qty: 14 0RF Continued ferrous sulfate 325 mg (65 mg iron) tablet,delayed release (DR/EC) 325 mg PO BID Qty: 90 1RF (DME) diaper,brief,adult,disposable Misc See Rx Instructions .Route Qty: 140 3RF Rx Instructions: As directed montelukast [Singulair] 10 mg tablet 10 mg PO QPM Qty: 90 1RF (DME) Roho cushion See Rx Instructions .Route .MEDSUPPLY Qty: 1 0RF Rx Instructions: As directed levothyroxine 125 mcg tablet 125 mcg PO QDAY Qty: 90 1RF multivitamin tablet 1 tab PO QDAY aspirin 81 mg tablet,chewable 81 mg PO QDAY acetaminophen 500 mg capsule 500 mg PO Q6H PRN (Reason: Pain, Mild) theophylline 400 mg tablet extended release 24 hr 400 mg PO DAILY tamsulosin 0.4 mg capsule 1 cap PO HS Follow Up Plan Follow up with: Surgery, vascular [Other] Bernardo Crews MD [Physician] - Maurice Dawson MD [Physician] - Solitario Bo MD [Primary Care Provider] - Patient Disposition: Xfer SNF Plan of Treatment: Plan: Continue current wound care as discussed with nursing staff at bedside. Will follow patient during his hospitalization. Prognosis: Fair Rehab Potential: Good I certify that the patient requires SNF services: Yes Overall status at discharge: patient is progressing back to baseline Discharge Orders: Discharge Order (Routine); Ordered 06/10/22 Ordered By: Marlo Tee
== END 2022-06-10 11:13 | DRG 593 ==
LOC: ED 10:37 → ICU 19:30 → MEDSUR 06-07 18:10
PROVIDERS: ADMIT Internal Medicine; ATTEND Internal Medicine